=== PATIENT | female | born 1965 | race Caucasian/White ===

== ENCOUNTER 2025-05-19 10:19 | Outpatient (AMB) | payer OTHER, SELFPAY ==
[2025-05-19 10:24] VITALS: BMI 32.1
--- NOTE | 2025-05-19 10:24 | HO.SPINEOV ---
Vital Signs 05/19/25 10:24 Height 5 ft 1 in Weight 170 lb BMI 32.1 Intake Visit Reasons: chronic left sided low back pain Intake Note: Mrs. Betancourt is here today c/o Left buttock pain. Foam Machine Operator Required: No Allergies acetaminophen (From Vicodin) Allergy (Severe, Verified 05/19/25 10:25) Rash bupropion (From Wellbutrin) Allergy (Severe, Verified 05/19/25 10:25) Hallucinations hydrocodone (From Vicodin) Allergy (Severe, Verified 05/19/25 10:25) Rash Penicillins Allergy (Severe, Verified 05/19/25 10:25) Hives Physical Exam Vital Signs: BMI result Body Mass Index 32.1 Assessment & Plan Assessment & Plan (1) Acquired spondylolisthesis of lumbosacral region: Code(s): M43.17 - Spondylolisthesis, lumbosacral region Category: Medical Plan: Dear dear colleague Thank you for referring Marilyn Betancourt to the office today with a chief complaint of left leg pain. HPI: This 59-year-old female developed pain that radiates down her left buttock posterior thigh and calf/lateral side. Walking and standing increases the pain. Sitting down improves the pain. 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 The right side is less affected. She also has pain on the dorsum of the bilateral feet. Currently the right side is more affected than the left side. She was told that this is a foot problem for which she needs to undergo some form of fusion of her feet. The following conservative treatment options were tried without success antiinflammatories, tylenol, physician guided home exercise plan, cortisone shots PMH: Anxiety depression, bilateral knee surgery, 3 C sections Medications: Duloxetine, meloxicam, oxybutynin, Neurontin, Tylenol and vitamin D3 Allergies: Penicillin, Vicodin, Chantix, Wellbutrin Social history: . Nonsmoker Physical Exam: Pleasant female. Height 5'1 weight 180 lb. Straight leg raise produces pain in the left buttock. Motor exam and sensory exam are intact. Gait is undisturbed Radiological Studies: MRI done at [facility] on 08/23/2024 shows severe L4-5 spinal stenosis and L5-S1 spinal stenosis with compression of the L5 and S1 nerve roots. She also has a severe right L5 foraminal stenosis. 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 Dynamic lumbar x-rays today show a grade 1-2 L5-S1 spondylolisthesis without instability. Impression/Plan: This patient is suffering from a lumbar radiculopathy left side without significant back pain. Imaging show a spondylolisthesis that seems to be stable on flexion-extension x-rays. More importantly, the MRI shows severe spinal stenosis L4-5 and L5-S1 with compression of the L5 and S1 nerve roots. I offered her an L4-5 and L5-S1 laminotomy to decompress the L5 and S1 nerve root on the left side. I am curious to see if this will also resolve the pain on the top of her foot as this will may well represent pain coming from the L5 nerve root. For now, I think a fusion is not indicated. She will let my office know when she wants to schedule the surgery. Thank you for allowing me to participate in your patients care. total time spent was 50 minutes in counseling ,coordination of plan, personal review of imaging, surgical decision making and subsequent plan Alvaro Galarza MD, PhD Spine Fellowship Trained Neurosurgeon Director, [facility] Orders: Orders XR lumbar spine 4V min Today M43.17 - Spondylolisthesis, lumbosacral region Coding Level of Care Code New Pt Level 4 (33582) Diagnoses Acquired spondylolisthesis of lumbosacral region M43.17
--- OUTSIDE RECORDS SUMMARY | 2025-05-19 11:02 | XMS_ITS | Encounter Summary ---
Author Organization [facility] Address [address] [place] [address] Care Team Providers Care Purchasing Manager/Sales Name Role Phone Melva Rivero APRN Primary Care Provider U navailable Unknown Pcp, Non Rmg Primary Care Provider UnaAndrew Arauz MD Primary Care Provider Encounter Details Date Type Department Care Team (Late st Contact Info) Description 11/24/2013 Orders Only [facility] [address] [place] [address] Melva Rivero, HELP DESK SUPERVISOR Social History Tobacco Use Types Packs/Day Years Used Date Smoking Tobacco: Every Day Cigarettes 1 7 Smokeless Tobacco: Never Alcohol Use Standard Drinks/Week Comments Yes 2.5 (1 standard drin k = 0.6 oz pure alcohol) Enjoys an occasional glass of wine Comments No Sex and Gender Information Value Date Recorded Sex Assigned at Not on file Legal Sex Female 4:29 AM EDT Gender Identity Not on file Sexual Orientation Not on file 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 Vitamin D deficiency can decrease the body's ability to absorb calcium and so increase potential for osteoporosis. Vitamin D deficiency can cause muscle aches and pains. Goal is a blood level over 30 Start with calcium with D 600 mg (calcium) twice a day. recheck in 6 months: (Vit D 25 OH). Please order lab work. . Immunity to Hep B noted. . Melva Aranda NP documented in this encounter Plan of Treatment Not on file documented as of this encounter Procedures * Due to [place] [employer] law, this organization might not be sharing negative HIV tests. Procedure Name Priority Date/Time Associated Diagnosis Comments HEPATITIS C AB WITH REFLEX TO RNA PCR, SERUM Routine 11/24/2013 9:38 AM EST Decorative tattoo HEPATITIS B SURFACE ANTIBODY, QUALITATIVE Routine 11/24/2013 9:38 AM EST Immunity status testing HEPATITIS B CORE ANTIBODY, TOTAL, SERUM Routine 11/24/2013 9:38 AM EST Decorative tattoo CBC INCLUDES DIFFERENTIAL AND PLATELET COUNT Routine 11/24/2013 9:38 AM EST Screening for condition ALANINE AMINOTRANSFERASE (ALT), SERUM Routine 11/24/2013 9:38 AM EST Screening for condition ASPARTATE AMINOTRANSFERASE (AST), SERUM Routine 11/24/2013 9:38 AM EST Screening for condition HEMOGLOBIN A1C Routine 11/24/2013 9:38 AM EST Screening for diabetes mellitus VITAMIN D, 25-HYDROXY, TOTAL, IMMUNOASSAY Routine 11/24/2013 9:38 AM EST Screening for condition BASIC METABOLIC PANEL WITH (GFR) Routine 11/24/2013 9:38 AM EST Screening for condition documented in this encounter Results * Due to [place] [employer] law, this organization might not be sharing negative HIV tests. * (ABNORMAL) HEPATITIS B SURFACE ANTIBODY, QUALITATIVE (11/24/2013 9:38 AM EST) Hepatitis B virus surface Ab REACTIVE(A ) NON-REACT AMOL [facility] Comment:{HEPATITIS B SURFACE ANTIBODY QL {[id number]) 11/24/2013 9:38 AM EST 11/24/2013 7:53 PM EST Narrative Resulting Agency Comment [id number] Melva Rivero [facility] Final Re sult Performing Organization Address [facility] de Phone Number [facility] [address] [place] [address] * HEMOGLOBIN A1C (11/24/2013 9:38 AM EST) Pathologist [facility] Hemoglobin A1C 5.6 <5.7 % of total Hgb [facility] Comment: {HEMOGLOBIN A1c {[id number]) According to ADA guidelines, hemoglobin A1c <7.0% represents optimal control in non- diabetic patients. Different metrics may apply to specific patient populations. Standards of Medical Care in Diabetes-2013. Diabetes Care. 2013;36:s11-s66 For the purpose of screening for the presence of diabetes <5.7% Consistent with the absence of diabetes 5.7-6.4% Consistent with increased risk for diabetes (prediabetes) >or=6.5% Consistent with diabetes This assay result is consistent with a decreased risk of diabetes. Currently, no consensus exists for use of hemoglobin A1c for diagnosis of diabetes for children. Estimated Average Glucose 122 mg/dL (calc) [facility] Comment:{MEAN PLASMA GLUCOSE {[id number]) 11/24/2013 9:38 AM EST 11/24/2013 7:53 PM EST Narrative Resulting Agency Comment [id number] Melva Rivero HELP DESK SUPERVISOR LABORATORY Final Re sult Performing Organization Address City/[facility] Co de Phone Number [facility] [address] [place] [phone] * CBC INCLUDES DIFFERENTIAL AND PLATELET COUNT (11/24/2013 9:38 AM EST) WBC 10.0 3.8 - 10.8 Thousand/u L [facility] Comment:{WHITE BLOOD CELL CO UNT {[id number]) RBC 4.90 3.80 - 5.10 Million/uL [facility] Comment:{RED BLOOD CELL COUN T {[id number]) Hemoglobin 13.8 11.7 - 15.5 g/dL [facility] Comment:{HEMOGLOBIN {[id number]) Hematocrit 41.4 35.0 - 45.0 % [facility] Comment:{HEMATOCRIT {[id number]) MCV 84.5 80.0 - 100.0 fL [facility] Comment:{MCV {[id number]) MCH 28.1 27.0 - 33.0 pg [facility] Comment:{MCH {[id number]) MCHC 33.2 32.0 - 36.0 g/dL [facility] Comment:{MCHC {[id number]) RDW 14.7 11.0 - 15.0 % [facility] Comment:{RDW {[id number]) PLT 291 140 - 400 Thousand/u L [facility] Comment:{PLATELET COUNT {[id number]) MPV 9.0 7.5 - 11.5 fL [facility] Comment:{MPV {[id number]) Neutrophils # 7260 1500 - 7800 cells/uL [facility] Comment:{ABSOLUTE NEUTROPHIL S {[id number]) Lymphocytes # 2110 850 - 3900 cells/uL [facility] Comment:{ABSOLUTE LYMPHOCYTE S {[id number]) Monocytes # 520 200 - 950 cells/uL [facility] Comment:{ABSOLUTE MONOCYTES {[id number]) Eosinophils # 70 15 - 500 cells/uL [facility] Comment:{ABSOLUTE EOSINOPHIL S {[id number]) Basophils # 40 0 - 200 cells/uL [facility] Comment:{ABSOLUTE BASOPHILS {[id number]) Neutrophils % 72.6 % [facility] Comment:{NEUTROPHILS {[id number]) Lymphocytes % 21.1 % [facility] Comment:{LYMPHOCYTES {[id number]) Monocytes % 5.2 % [facility] Comment:{MONOCYTES {[id number]) Eosinophils % 0.7 % [facility] Comment:{EOSINOPHILS {[id number]) Basophils % 0.4 % [facility] Comment:{BASOPHILS {[id number]) 11/24/2013 9:38 AM EST 11/24/2013 7:53 PM EST Narrative Resulting Agency Comment [id number] Melva Rivero [facility] SAME DAY RESULT Brenda l Result Performing Organization Address [facility] Co de Phone Number [facility] [address] [place] [address] * ALANINE AMINOTRANSFERASE (ALT), SERUM (11/24/2013 9:38 AM EST) ALT (SGPT) 15 6 - 29 U/L [facility] Comment:{ALT {[id number]) 11/24/2013 9:38 AM EST 11/24/2013 7:53 PM EST Narrative Resulting Agency Comment [id number] Melva Rivero [facility] SAME DAY RESULT Brenda l Result Performing Organization Address [facility] de Phone Number [facility] [address] [place] [address] * ASPARTATE AMINOTRANSFERASE (AST), SERUM (11/24/2013 9:38 AM EST) AST (SGOT) 12 10 - 35 U/L [facility] Comment:{AST {[id number]) 11/24/2013 9:38 AM EST 11/24/2013 7:53 PM EST Narrative Resulting Agency Comment [id number] Melva Rivero [facility] SAME DAY RESULT Brenda l Result Performing Organization Address [facility] de Phone Number [facility] [address] [place] [address] * BASIC METABOLIC PANEL WITH (GFR) (11/24/2013 9:38 AM EST) Glucose 84 65 - 99 mg/dL [facility] Comment: {GLUCOSE {[id number]) Fasting reference interval Urea Nitrogen Blood (BUN) 9 7 - 25 mg/dL [facility] Comment:{UREA NITROGEN (BUN) {[id number]) Creatinine 0.69 0.50 - 1.10 mg/dL [facility] Comment:{CREATININE {[id number]) GFR 104 > OR = 60 mL/min/1. 73m2 [facility] Comment:{eGFR NON-AFR. AMERI CAN {[id number]) GFR () 121 > OR = 60 mL/min/1. 73m2 [facility] Comment:{eGFR AMERIC AN {[id number]) BUN/Creatinine Ratio NOT APPLICABLE (calc) [facility] Comment:{BUN/CREATININE RATI O {[id number]) Sodium 139 135 - 146 mmol/L [facility] Comment:{SODIUM {[id number]) Potassium 4.7 3.5 - 5.3 mmol/L [facility] Comment:{POTASSIUM {[id number]) Chloride 105 98 - 110 mmol/L [facility] Comment:{CHLORIDE {[id number]) Carbon dioxide 23 19 - 30 mmol/L [facility] Comment:{CARBON DIOXIDE {[id number]) Calcium 9.3 8.6 - 10.2 mg/dL [facility] Comment:{CALCIUM {[id number]) 11/24/2013 9:38 AM EST 11/24/2013 7:53 PM EST Narrative [facility] - 11/25/2013 12:03 AM EST Please note that this estimated GFR does not include an adjustment for the patient's height or weight, and can therefore, be viewed as reliable only for patients with heights between 60 and 72 . More precise quantification using a 24-hour urine sample or height-based algorithm is recommended for patients outside of this range of height and for those individuals with more precise needs for GFR calculation. Resulting Agency Comment [id number] Melva Rivero APRN LABORATORY Final Re sult [facility] [address] [place] [address] * HEPATITIS B CORE ANTIBODY, TOTAL, SERUM (11/24/2013 9:38 AM EST) Hepatitis B virus core Ab NON-REACTI VE NON-REACT AMOL [facility] Comment:{HEPATITIS B CORE AB TOTAL {[id number]) 11/24/2013 9:38 AM EST 11/24/2013 7:53 PM EST Narrative Resulting Agency Comment [id number] Melva Rivero [facility] Final Re sult Performing Organization Address [facility] Co de Phone Number [facility] [address] [place] [address] * HEPATITIS C ANTIBODY, SERUM (11/24/2013 9:38 AM EST) Hepatitis C virus Ab NON-REACTI VE NON-REACT AMOL [facility] Comment:{HEPATITIS C ANTIBOD Y {[id number]) Hepatitis C virus Ab Signal/Cutoff 0.04 <1.00 [facility] Comment:{SIGNAL TO CUT-OFF { [id number]) 11/24/2013 9:38 AM EST 11/24/2013 7:53 PM EST Narrative Resulting Agency Comment [id number] Melva Rivero [facility] Final Re sult Performing Organization Address [facility] de Phone Number [facility] [address] [place] [address] * (ABNORMAL) VITAMIN D, 25-HYDROXY, LC/MS/MS (11/24/2013 9:38 AM EST) Vitamin D, 25-OH, Total 29(L) 30 - 100 ng/mL [facility] Comment:{VITAMIN D, 25 OH, T OTAL {[id number]) Vitamin D, D3 (Cholecalciferol ) 29 ng/mL [facility] Comment:{VITAMIN D, 25 OH, D 3 {[id number]) Vitamin D, 25-OH, D2 (Calciferol) <4 ng/mL [facility] Comment: {VITAMIN D, 25 OH, D2 {[id number]) 25-OHD3 indicates both endogenous production and supplementation. 25-OHD2 is an indicator of exogenous sources such as diet or supplementation. Therapy is based on measurement of Total 25-OHD, with levels <20 ng/mL indicative of Vitamin D deficiency, while levels between 20 ng/mL and 30 ng/mL suggest insufficiency. Optimal levels are > or = 30 ng/mL. 11/24/2013 9:38 AM EST 11/24/2013 7:53 PM EST Narrative Resulting Agency Comment [id number] Melva Rivero APRN LABORATORY Final Re sult Performing Organization Address City/State/[facility] Co de Phone Number [facility] [address] [place] [address] documented in this encounter Visit Diagnoses Diagnosis Screening for condition Screening for unspecified condition Decorative tattoo Other dyschromia Screening for diabetes mellitus Immunity status testing Antibody response examination documented in this encounter Care Teams Purchasing Manager/Sales Relationship Specialty Start Date End Date Melva Rivero APRN PCP - General Internal Medicine 03/30/13 12/03/14 Unknown Pcp, Non Rmg PCP - General 12/04/14 03/19/15 Andrew Coffey MD [facility] [address] [place] [id number] PCP - General Internal Medicine 03/20/15 documented as of this encounter
--- OUTSIDE RECORDS SUMMARY | 2025-05-19 11:02 | XMS_ITS | Encounter Summary ---
Author Organization [facility] Address [address] [place] [address] Care Team Providers Care Brokerage Coordinator Name Role Phone Reema Olivier MD Primary Care Provider Nadeem Michel MD Primary Care Provider Melva Pruitt APRN Primary Care Provider U navailable Unknown Pcp, Non [facility] Primary Care Provider Unava ilAndrew Cole MD Primary Care Provider Encounter Details Date Type Department Care Team (Late st Contact Info) Description 04/27/2009 Orders Only [facility] [address] [place] [phone] Savana Winslow NP [facility] [address] [place] [address] Social History Tobacco Use Types Packs/Day Years Used Date Smoking Tobacco: Every Day Cigarettes 0.5 3 Comments:Has quit in the pas t for 6 years. Has tried Chantix - made her dizzy. Alcohol Use Standard Drinks/Week Comments Yes 2.5 (1 standard drin k = 0.6 oz pure alcohol) Enjoys an occasional glass of wine Comments No Sex and Gender Information Value Date Recorded Sex Assigned at Not on file Legal Sex Female 4:29 AM EDT Gender Identity Not on file Sexual Orientation Not on file documented as of this encounter Progress Notes * Reema Olivier MD - 05/02/2009 12:51 PM EDTQuick Note: D/w pt at OV 05/02/09. * Savana Winslow - [facility] - 04/30/2009 7:41 AM EDTQuick Note: Cholesterol elevated, Not taking any meds. Pt has OV with PCP 05/02 for 3 month follow up documented in this encounter Plan of Treatment Not on file documented as of this encounter Procedures * Due to [facility] law, this organization might not be sharing negative HIV tests. Procedure Name Priority Date/Time Associated Diagnosis Comments LIPID PANEL + CARDIAC RISK WITH REFLEX TO LDL DIRECT Routine 04/27/2009 Hyperlipidemia documented in this encounter Results * Due to [place] [employer] law, this organization might not be sharing negative HIV tests. * (ABNORMAL) LIPID PANEL + CARDIAC RISK WITH REFLEX TO LDL DIRECT (04/27/2009) CHOLESTEROL, TOTAL 243(H) 125 - 200 MG/DL [facility] TRIGLYCERIDES 156(H) 30 - 149 MG/DL [facility] HDL-CHOLESTEROL 62 40 - 77 MG/DL [facility] LDL-CHOLESTEROL 150(H) 62 - 130 MG/DL [facility] Comment: RISK CATEGORY: LDL-CHOLESTEROL GOAL CHD AND CHD RISK EQUIVALENTS: <100 MULTIPLE (2+) FACTORS: <130 ZERO TO ONE RISK FACTOR: <160 CHD RELATIVE RISK RATIO (TOTAL/HDL) 3.92 0.0 - 5.0 [facility] Comment:(0.8 X AVERAGE) 04/27/2009 04/27/2009 4:4 8 PM EDT Savana Winslow CREMATORY ATTENDANT LABORATORY Final Result [facility] [address] [place] [address] documented in this encounter Visit Diagnoses Diagnosis Hyperlipidemia Other and unspecified hyperlipidemia documented in this encounter Care Teams Brokerage Coordinator Relationship Specialty Start Date End Date Reema Olivier MD PCP - General 06/23/08 03/20/12 Nadeem Michel MD PCP - General Internal Medicine 03/21/12 03/29/13 Melva Rivero APRN PCP - General Internal Medicine 03/30/13 12/03/14 Unknown Pcp, Non Rmg PCP - General 12/04/14 03/19/15 Andrew Coffey MD [facility] [address] [place] [id number] PCP - General Internal Medicine 03/20/15 documented as of this encounter
--- OUTSIDE RECORDS SUMMARY | 2025-05-19 11:02 | XMS_ITS | Encounter Summary ---
Author Organization [facility] Address [address] [place] [address] Care Team Providers Care Commercial Producer Name Role Phone Nadeem Michel MD Primary Care Provider Melva Pruitt APRN Primary Care Provider U navailable Unknown Pcp, Non g Primary Care Provider Unava ilAndrew Cole MD Primary Care Provider [phone] Reason for Visit * Reason Comments E-prescribing Refill Request Encounter Details Date Type Department Care Team (Late st Contact Info) Description 12/16/2012 Refill [facility] [address] [place] [phone] Nadeem Michel MD E-prescribing Refill Request Social History Tobacco Use Types Packs/Day Years [...] n file documented as of this encounter Plan of Treatment Not on file documented as of this encounter Visit Diagnoses Not on filedocumented in this encounter Care Teams Commercial Producer Relationship Specialty Start Date End Date Nadeem Michel MD PCP - General Internal Medicine 03/21/12 03/29/13 Melva Rivero APRN PCP - General Internal Medicine 03/30/13 12/03/14 Unknown Pcp, Non [facility] PCP - General 12/04/14 03/19/15 Andrew Coffey MD [facility] [address] [place] [address] PCP - General Internal Medicine 03/20/15 documented as of this encounter
--- OUTSIDE RECORDS SUMMARY | 2025-05-19 11:02 | XMS_ITS | Encounter Summary ---
Author Organization [facility] Address [address] [place] [address] Care Team Providers Care Machine Clerical Verifier Name Role Phone Reema Olivier MD Primary Care Provider [phone] Nadeem Michel MD Primary Care Provider Melva Pruitt APRN Primary Care Provider U navailable Unknown Pcp, [place] [facility] [place] Unava ilAndrew Cole MD Primary Care Provider Encounter Details Date Type Department Care Team (Late st Contact Info) Description 12/25/2008 Orders Only [facility] [address] [place] [address] [phone] Reema Olivier MD [address] [place] [id number] Social History Tobacco Use Types Packs/Day Years [...] on file documented as of this encounter Plan of Treatment Not on file documented as of this encounter Procedures * Due to [place] state law, this organization might not be sharing negative HIV tests. Procedure Name Priority Date/Time Associated Diagnosis Comments CARDIAC RISK/LIPID PROFILE I Routine 12/25/2008 Hyperlipidemia PTT (PARTIAL THROMBOPLASTIN TIME) Routine 12/25/2008 Preop Examination CBC 5 PART DIFF Routine 12/25/2008 Preop Examination ALANINE AMINOTRANSFERASE (ALT), SERUM Routine 12/25/2008 Hyperlipidemia ASPARTATE AMINOTRANSFERASE (AST), SERUM Routine 12/25/2008 Hyperlipidemia documented in this encounter Results * Due to [facility] law, this organization might not be sharing negative HIV tests. * (ABNORMAL) PTT (PARTIAL THROMBOPLASTIN TIME) (12/25/2008) PTT (PARTIAL THROMBOPLASTIN TIME) 35(H) 22 - 34 SECONDS Comment: THERAPEUTIC RANGE FOR HEPARIN THERAPY: 43-71 SEC. THE THERAPEUTIC RANGE FOR UNFRACTIONATED HEPARIN THERAPY IS 1.5-2.5 TIMES THE MEAN OF THE REFERENCE INTERVAL. IN PATIENTS IN WHOM THERE IS AN APPARENT HEPARIN RESISTANCE, A HEPARIN LEVEL BY AN ANTI-XA METHOD (RR6707) IS AVAILABLE. 12/25/2008 12/25/2008 12: 17 PM EDT Reema Olivier MD LAB SAME DAY RESULT Final Result * (ABNORMAL) CBC 5 PART DIFF (12/25/2008) WHITE BLOOD COUNT 11.3(H) 3.8 - 10.8 THOUS/UL RBC 4.75 3.80 - 5.10 MIL/UL Hemoglobin 13.1 11.7 - 15.5 G/DL HCT (HEMATOCRIT) 39.7 35.0 - 45.0 % MCV 83.6 80.0 - 100.0 FL MCH 27.5 27.0 - 33.0 PG MCHC 32.9 32.0 - 36.0 G/DL BAND % 0 0 - 5 % NEUTROPHIL % 78(H) 48 - 75 % LYMPHOCYTE % 16(L) 17 - 40 % MONOCYTE % 5 0 - 14 % EOSINOPHIL % 1 0 - 5 % BASOPHIL % 0 0 - 3 % ATYPICAL LYMPHOCYTE % 0 0 - 5 % PLATELETS 283 140 - 400 THOUS/UL BANDS # 0 0 - 750 CELLS/MCL NEUTROPHILS # 8814(H) 1500 - 7800 CELLS/MCL LYMPHOCYTES # 1808 850 - 3900 CELLS/MCL MONOCYTES # 565 200 - 950 CELLS/MCL EOSINOPHILS # 113 15 - 550 CELLS/MCL BASOPHILS # 0 0 - 200 CELLS/MCL ATYPICAL LYMPHOCYTES # 0 0 - 200 CELLS/MCL RDW 14.9 11.0 - 15.0 % MPV 8.5 7.5 - 11.5 FL 12/25/2008 12/25/2008 12: 17 PM EDT us Reema Olivier MD LAB SAME DAY RESULT Final Result * ALANINE AMINOTRANSFERASE (ALT), SERUM (12/25/2008) ALT (SGPT) 14 6 - 40 U/L 12/25/2008 12/25/2008 12: 17 PM EDT us Reema Olivier MD LAB SAME DAY RESULT Final Result * ASPARTATE AMINOTRANSFERASE (AST), SERUM (12/25/2008) AST (SGOT) 12 10 - 30 U/L 12/25/2008 12/25/2008 12: 17 PM EDT us Reema Olivier MD LAB SAME DAY RESULT Final Result * (ABNORMAL) CARDIAC RISK/LIPID PROFILE I (12/25/2008) CHOLESTEROL, TOTAL 217(H) 125 - 200 MG/DL TRIGLYCERIDES 175(H) 30 - 149 MG/DL HDL-CHOLESTEROL 50 40 - 77 MG/DL LDL-CHOLESTEROL 132(H) 62 - 130 MG/DL Comment: RISK CATEGORY: LDL-CHOLESTEROL GOAL CHD AND CHD RISK EQUIVALENTS: <100 MULTIPLE (2+) FACTORS: <130 ZERO TO ONE RISK FACTOR: <160 CHD RELATIVE RISK RATIO (TOTAL/HDL) 4.34 0.0 - 5.0 Comment:(1.0 X AVERAGE) 12/25/2008 12/25/2008 12: 17 PM EDT Reema Olivier MD LABORATORY Final Result documented in this encounter Visit Diagnoses Diagnosis Hyperlipidemia Other and unspecified hyperlipidemia Preop examination Preoperative examination, unspecified documented in this encounter Care Teams Machine Clerical Verifier Relationship Specialty Start Date End Date Reema Olivier MD PCP - General 06/23/08 03/20/12 Nadeem Michel MD PCP - General Internal Medicine 03/21/12 03/29/13 Melva Rivero, STAFF PHYSICAL THERAPIST BC PCP - General Internal Medicine 03/30/13 12/03/14 Unknown Pcp, Non [facility] PCP - General 12/04/14 03/19/15 Andrew Coffey MD [facility] [address] [place] [phone] PCP - General Internal Medicine 03/20/15 documented as of this encounter
--- OUTSIDE RECORDS SUMMARY | 2025-05-19 11:02 | XMS_ITS | Clinical Summary ---
Author Organization [facility] Address [address] [place] [address] Care Team Providers Care Systems Integration Advisor Name Role Phone Dillon Roberto MD Primary Care Provider [phone] Allergies Active Allergy Reactions Criticality Noted Date Comments Bupropion Mood Disturbance,Hallucin ations 06/29/2023 Hydrocodone-Acetaminoph en Dermatitis,Rash 06/29/2023 Penicillins Dermatitis,Rash 06/29/2023 Varenicline Unknown,Hallucinatio ns 03/17/2018 out of body experience, angry Bupropion Hcl Rash 03/17/2018 Medications * This document contains information received from the source organization and may not represent a complete record from that organization. acetaminophen (TYLENOL) 325 mg tablet Take 2 tablets (650 mg total) by mouth every 6 hours. 1 Active cyclobenzaprine (FLEXERIL) 10 mg tabletIndications :Spinal stenosis of lumbar region without neurogenic claudication Take 1 tablet (10 mg total) by mouth every night. 30 tablet 4 Active LORazepam (ATIVAN) 0.5 mg tabletIndications :Major depressive disorder with current active episode, unspecified depression episode severity, unspecified whether recurrent Take 1 tablet (0.5 mg total) by mouth 2 times a day as needed for anxiety. 60 tablet 4 Active cholecalciferol (VITAMIN D3) 2,000 unit capsuleIndication s:Vitamin D deficiency Take 1 capsule (2,000 Units total) by mouth once a day. 90 capsule 1 5 Active diazePAM (VALIUM) 5 mg tablet Take 1 tablet (5 mg total) by mouth once for 1 dose. Take 1 tab an hour before procedure, can repeat once [address] (CYMBALTA) 30 mg capsule Take 1 capsule (30 mg total) by mouth once a day. In addition to the 60 mg tab 90 capsule 1 5 07/29/[address] (CYMBALTA) 60 mg capsule Take 1 capsule (60 mg total) by mouth daily. In addition to the 30 mg tab 90 capsule 1 5 07/29/20 25 Active oxybutynin XL (DITROPAN XL) 10 mg tabletIndications :OAB (overactive bladder) TAKE 1 TABLET (10 MG TOTAL) BY MOUTH ONCE DAILY 30 tablet 3 5 Active meloxicam (MOBIC) 15 mg tablet Take 1 tablet (15 mg total) by mouth once a day. 90 tablet 1 5 Active gabapentin (NEURONTIN) 300 mg capsuleIndication s:Lumbar radiculopathy Take 1 capsule in the morning and 2 capsules po at bedtime 90 capsule 5 5 Active hydrOXYzine (ATARAX) 50 mg tabletIndications :Anxiety Take 1 tablet (50 mg total) by mouth 2 times a day as needed for anxiety. 60 tablet 2 5 07/26/20 25 Active busPIRone (BUSPAR) 5 mg tabletIndications :Depression with anxiety Take 1 tablet (5 mg total) by mouth 2 (two) times a day. 180 tablet 5 04/27/20 25 Discontin ued([facility] Response/ Adverse Reaction) Active Problems Problem Noted Date Diagnosed Date Hyperlipidemia 12/11/2023 OAB (overactive bladder) 12/11/2023 Former smoker 12/11/2023 S/P carpal tunnel release 12/11/2023 Spinal stenosis of lumbar re gion without neurogenic claudication 01/14/2022 Assessment & Plan (01/04/2025 12:12 PM EDT): Pt reports a history of spinal stenosis with chronic pain radiating from the buttocks down the right leg. Describes significant discomfort when putting pressure on the right foot/leg, often requiring her to lie flat after returning home from work for symptom relief. Symptoms have been ongoing for the past several years. Pt reports gabapentin previously provided some relief. She underwent a guided injection in June 2024, but experienced shooting pain during the procedure and states that the injection did not relieve her pain. She has not followed up since that injection and is not interested in pursuing further injections. Also reports severe arthritis as a compounding factor. Spinal stenosis with right-sided radiculopathy - chronic, persistent Severe arthritis - likely contributing to functional limitation Injection therapy not tolerated or effective Gabapentin reinitiated for neuropathic pain relief Referral to physical medicine and rehabilitation (physiatry) placed for further conservative management and evaluation Orders: Ambulatory referral to Physical Medicine Rehab; Future gabapentin (NEURONTIN) 300 mg capsule; Take 1 capsule (300 mg total) by mouth nightly. Rheumatoid arthritis with negative rheumatoid fa ctor 02/25/2017 Assessment & Plan (05/08/2019 7:39 PM EDT): Previous symptoms of a seronegative disorder seem not to be active presently. Symptoms in the knees and the foot appear to be predominantly osteoarthritic at this time. Assessment & Plan (12/29/2018 7:19 PM EDT): Symptoms seen previously in a more generalized fashion have resolved. She is using some intermittent prednisone for her foot but not having generalized symptoms that she had previously. Problems in the knees were related to meniscal damage and accompanying osteoarthritis and not part of an inflammatory process. Assessment & Plan (09/30/2018 12:48 AM EST): Original symptoms suggesting a seronegative inflammatory process seem not to have born out well over time. Trials of prednisone seem to help symptoms partly although biologic agents were not very helpful in improving symptoms. She is withdrawn from prednisone and is no longer on Enbrel or Humira and there is not been an accumulation or deterioration of symptoms in other areas. Problems in the knees and the feet I believe her osteoarthritic changes. Certainly there are situations where there can be some transient inflammatory symptoms, but what ever had been present at original presentation seems not to have fostered a progressive process and I would be more conservative with medication suggestions at this time. Lower extremity symptoms may be partially related to changing gait for dealing with the symptoms in the knees and I hope that once the left knee surgical repair is undertaken that the knee pain will improve. Assessment & Plan (06/27/2018 12:19 PM EDT): Not clinically active by physical exam. Assessment & Plan (05/12/2018 6:44 PM EDT): Generalized symptoms seem well controlled without any evidence for active warmth swelling or redness. Monitoring labs will be drawn. Meloxicam and Enbrel will continue. Assessment & Plan (03/18/2018 11:48 PM EDT): She continues with a moderate amount of discomfort in the knees and feet, less so on the hips and upper extremities, which is not responded well to anti- inflammatories. Larger doses of prednisone have been helpful. She is failed other oral options and I suggested to go ahead and look at a biologic agent with Enbrel or Actemra as options as insurance might allow. Continues with a substantial amount of symptoms. Assessment & Plan (12/30/2017 6:40 PM EDT): In active symptoms presently. No need to resume previous medication. Assessment & Plan (09/30/2017 7:45 PM EST): Initial presentation of symmetric symptoms in the shoulders and hips especially with some additional symptoms in the hands and feet. I am not certain whether the symptoms in the feet represent problems of neuropathy or inflammatory changes. She has been on Humira now almost 5 months and she felt that there had been some improvement with the Humira that would tail off by the time the next dose was due but she feels that she is not as comfortable as she expected. She has some days of improvement after the injection although the significant relief is not present as she had hoped and she continues with some soreness in the hips. Her shoulder pain is better. She has some slight discomfort in the hands and she has some symptoms in the feet which are difficult to discern. Laboratory studies have not been helpful in confirming a diagnosis of rheumatoid arthritis and I have been driven by the symptoms of symmetry, morning stiffness, and initial response to the sewn, which is been replaced the failed trial of methotrexate and now Humira. I suggested increasing gabapentin to 300 mg twice daily or 600 mg twice daily looking to see what response is generated for managing her foot pain. I suggested deferring her next dose of Humira looking to see whether there is a fade in leaf of symptoms as she goes beyond the 14 day injection cycle. Meloxicam can continue for now. I do not think imaging studies will be helpful. In previous laboratory studies did not demonstrate affirmative findings for rheumatoid arthritis or related disorders. This is still regarded as a seronegative arthritis disorder, uncharacterized. Assessment & Plan (08/15/2017 5:05 PM EST): The initial symptoms have improved initially with a trial of prednisone and have been sustained with Humira. I do not see anything to suggest Humira related adverse effects at this time, and Humira will continue presently. I suggested a trial of meloxicam as an alternative to Aleve which she is using in doses slightly higher than I would prefer and suggested 15 mg meloxicam daily as an alternative. Humira continues every 2 weeks. No evidence for any injection site reactions or adverse effects from Humira. 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 Major depression 11/29/2009 Assessment & Plan (10/19/2023 8:40 AM EST): Declines referral to psychiatry, therapy did not help. Continues with duloxetine and ativan. Resolved Problems Problem Noted Date Diagnosed Date Resolved Date Vitamin D insufficiency 12/11/202305/22 Primary osteoarthritis of both feet 08/29/2021 10/19/2023 Assessment & Plan (12/23/2021 12:42 PM EDT): -Continue meloxicam 15mg daily. We discussed trying a different NSAID such as celebrex in case it is more helpful. She has been on Celebrex in the past too with some relief (during her knee surgery). Pt will consider -Also on Cymbalta 90mg daily -Weight loss would be beneficial. -Dr. Barksdale from Orthopedics had suggested an injection in the past, which she may consider. -Discussed trying acupuncture for pain management -Topicals have not been helpful except for Biofreeze Assessment & Plan (08/29/2021 12:19 PM EST): -Plans to continue on meloxicam 15mg daily with food. Denies any stomach upset. Will check labs today -Recommended to try wax/paraffin treatments for symptomatic relief. Instructions provided. -Pt will continue follow up with Orthopedics. Preoperative examination 12/18/2020 Trigger finger 09/10/2020 10/19/2023 Assessment & Plan (09/22/2020 2:09 PM EST): Local changes in both thumbs. I explained that local injection and surgical release are the interventions that I think are most useful. I have no expectation that splinting would be helpful. This is separate from osteoarthritic change at the trapeziometacarpal joints. Left hip pain 09/10/2020 10/19/2023 Assessment & Plan (09/22/2020 2:11 PM EST): Local trochanteric tenderness. Options of local injection of steroid and physical therapy in the home exercise program discussed with her. Home exercise program will be initiated first. Exercises given to her. Primary osteoarthritis of both knees 04/19/2020 10/19/2023 Arthritis of midfoot 06/03/2019 024 Assessment & Plan (10/06/2019 4:22 PM EST): I suggested addressing the knee problems before considering any approaches for the midfoot. Primary osteoarthritis of left knee 07/15/2018 10/19/2023 Assessment & Plan (10/06/2019 4:22 PM EST): Discussed above. Assessment & Plan (12/29/2018 7:20 PM EDT): Recent meniscal repair with findings of osteoarthritis in the knee, which could be a candidate for partial joint replacement when symptoms progress. She is quite pleased with the outcome of surgery and continues with her rehab program and she has a follow-up visit with the surgeon pending. Assessment & Plan (07/18/2018 11:46 AM EDT): Evidence for osteoarthritic damage in the left knee especially in the medial compartment with some fissuring of the cartilage seen on MRI as well as a complex tear of the posterior horn of the medial meniscus. I suspect that these are osteoarthritic changes as a consequence of meniscal tears as the sequence of events. It will unfortunately require a surgical consultation. Primary osteoarthritis of luis miguel th first carpometacarpal joints 05/12/2018 10/19/2023 Assessment & Plan (09/29/2022 12:40 PM EST): -Thumb braces provided. -Patient will apply topical lidocaine as she has found it helpful. Patches are not comfortable and come off. -Referred to OT. -Will consider paraffin treatments (but not concurrently with lidocaine as she understands it's a numbing topical med) -Continues on meloxicam 15mg daily. Also on Tylenol and Cymbalta. Assessment & Plan (12/29/2018 7:21 PM EDT): Osteoarthritic squaring most obvious at the base of the left thumb more than the right with local tenderness. Local measures are warranted. I do not think oral intervention has much to offer. Splints injections and topical approaches are appropriate. Assessment & Plan (05/12/2018 6:46 PM EDT): Osteoarthritic changes presence of the base of the thumb. Splinting and Voltaren cream might be options to consider. I explained that it would not necessarily be something right expect Enbrel have an impact. Primary osteoarthritis of right knee 02/25/2018 10/19/2023 Overview (02/25/2018): MRI February 24, 2018 Assessment & Plan (09/22/2020 2:10 PM EST): Persisting symptoms that she has chosen to tolerate for the current time. We discussed the inevitability of joint replacement which is based on how much symptoms interfere with her routine. Topical approaches have only been slightly helpful and Celebrex has not done as much for her as she would like. She had failed local injection previously and I would not reconsider that currently. Assessment & Plan (10/06/2019 4:20 PM EST): Osteoarthritis of both knees, which could be a consequence of medial meniscal damage as the primary event, or possibly osteonecrosis as suggested by the orthopedist with subsequent subchondral collapse and damage to the meniscal cartilage. She does not have a risk factor for osteonecrosis however. I would favor the meniscal damage is the primary event. Unfortunately she is exhausted approaches with local injection options, topical therapy and oral therapy and has had a significant effect and limiting her activities of daily living. I think that joint replacement becomes a necessary choice to consider presently even though she is on the younger side of individuals requiring surgery. Handicap placard will be renewed and pain medication prescription renewed until surgery. Assessment & Plan (05/08/2019 7:42 PM EDT): Bilateral medial compartment osteoarthritic changes in the setting of progressive deterioration of the medial meniscus. She is failed conservative approaches with arthroscopy, oral anti-inflammatories and topical anti-inflammatories and local injection of steroid. I did encourage her to consider hyaluronate as had been suggested by Dr. Bustos, and if she is interested in additional surgical opinions I could certainly give her some names. She is reluctant to consider partial knee replacement presently but I explained that it may give her a good amount of relief without foreclosing on future options if needed for additional surgery. Limited prescription for oxycodone provided to her as it allows her to continue to work. She is using it in a very sparing fashion. Appropriate use of the medication was reviewed with her. Assessment & Plan (12/29/2018 7:20 PM EDT): Stable symptoms after her arthroscopic repair of the meniscus. Assessment & Plan (02/25/2018 5:54 PM EDT): Discussion regarding surgical referral. Acute pain of right knee 02/22/2018 Assessment & Plan (03/18/2018 11:30 PM EDT): I believe she has a combination of problems in the knee with a meniscal tear, as well as some significant areas of osteoarthritic change in the knee that had evolved without any awareness on her part. I would like to think that the acute symptoms are related to the meniscal injury, and presently would think that this is a surgical problem. His advanced osteoarthritic changes in the knee which have evolved without any particular symptoms and an ultimate remedy will be joint replacement although one would like to think that a lesser intervention arthroscopically to deal with the meniscal damage could be helpful. She will see an orthopedist later today for another opinion. Oxycodone was increased to 10 mg tablets. I do not know that I have anything else to offer. She is using a variety of topical options with lidocaine and diclofenac and heat and ice. I do not think there is any place to consider repeat injection of steroid or to introduce oral steroid. Assessment & Plan (02/25/2018 5:53 PM EDT): Right knee pain with advanced osteoarthritic changes in the right knee not expected by previous imaging studies with additional mechanical problems of a Hawley's cyst and medial meniscal posterior horn cartilage tear. MRI report was reviewed with her in detail. She had incomplete improvement, has moderate discomfort with motion in the knee although does not describe locking or snapping. I suggested local injection of steroid in the knee today, with consideration for hyaluronate injection as an alternative as well. At 52 years old with discussed the prospect of joint replacement although she has very significant changes in the knee which occurred to a significant degree in an unexpected fashion. Orthopedic evaluation would be appropriate as well at this time. Aspiration yielded no obvious fluid in the knee and injection undertaken without complications with lidocaine, bupivacaine and 40 mg of Depo-Medrol Assessment & Plan (02/22/2018 10:08 PM EDT): Acute onset symptoms in the right knee without warmth swelling or redness. No evidence to suggest any inflammation, no effusion present in the knee no warmth or redness. I am concerned about a loose body in the knee although there is no distinct trauma and think that an MRI might be worthwhile at this time. X-rays of the knee a month ago on an AP view were unremarkable. Analgesic prescription offered, with oxycodone. Chronic pain of left knee 12/30/2017 Assessment & Plan (09/30/2018 12:46 AM EST): Left knee pain with some osteoarthritic changes and likely meniscal damage causing continued symptoms. She is failed oral medications and local injection and has plans for surgical repair in a month. She has a prescription for an analgesic with oxycodone to use when symptoms are severe, generally once a day. I do not think that there are other conservative measures available presently. She does have much more advanced osteoarthritic change in the knees than I would have expected for middle-aged without significant history of trauma or previous meniscal or ligamentous injuries. There does not seem to be an inflammatory component to symptoms. Assessment & Plan (07/18/2018 11:45 AM EDT): Symptoms in the left knee poorly responding to topical and oral therapy. We discussed seeing an orthopedic surgeon about the knee and also discussed an attempt at local injection for local relief. She has evidence for meniscal damage and osteoarthritic changes in the knee. Assessment & Plan (06/27/2018 12:19 PM EDT): Left knee pain without findings on exam to explain symptoms. Imaging studies do not show any significant findings on plain films. I am most concerned about an internal derangement in the knee and MRI ordered. Analgesics suggested temporarily. The gabapentin is been put aside for lack of benefit. No outward signs of inflammation where I would regard the Enbrel is having failed to manage symptoms. I think the knee problems are independent mechanical problems. Assessment & Plan (12/30/2017 6:40 PM EDT): Local symptoms suggestive of osteoarthritis of the knee. New imaging studies suggested. I suggested that she might try some [id number] remedies if symptoms appear to be more osteoarthritic, with trials of glucosamine or turmeric, although not validated, have some patients toward improvement and if she can have a response without relying on something by prescription that certainly could be considered. Capsaicin topical could be used as well. Foot pain, bilateral 08/10/2017 024 Assessment & Plan (05/08/2019 7:39 PM EDT): Osteoarthritic changes present in the right midfoot. Marketing Information Analyst referral discussed with her. Local availability of foot and ankle orthopedists is limited by her health insurance and I am not able to give her our recommendations of colleagues with whom I have shared patients otherwise. Assessment & Plan (12/29/2018 7:22 PM EDT): Seemingly osteoarthritis over the dorsum of the midfoot. New imaging studies ordered since the older ones [id number]. Nothing that suggests obvious crystal related disease presently or other inflammatory disorders. New imaging studies today and then additional imaging if needed, either with ultrasound or MRI. She is profoundly uncomfortable with concern for very significant difficulty being able to do any walking. Certainly stress fracture or other injury could be considered. Imaging studies pending. Assessment & Plan (09/30/2018 12:49 AM EST): Foot pain is suggestive for osteoarthritis over the dorsum of the midfoot areas. Very tender to local compression. There is no significant soft tissue swelling in the area presently. She is failed local measures. I suggested rechallenge with gabapentin for some symptomatic pain relief to be used at night 100 or 200 mg. No recent imaging has been done with films approximately a year ago or more. I am not suspicious for a crystal-induced disorder presently. New imaging studies could be undertaken if symptoms continue. Assessment & Plan (05/12/2018 6:45 PM EDT): Midfoot pain more likely to be due to osteoarthritis related changes in the area. Imaging studies done in December did not demonstrate significant bony abnormality. She does have some medial arch soft tissue swelling most likely local ganglion cyst emanating from the midfoot, which transilluminates and is fluctuant. I explained that it is not an area that easily amenable to resection and suggested a trial of Voltaren cream for symptomatic relief locally. I would not look to inject steroid in that area presently. Intervention choices are limited. Assessment & Plan (12/30/2017 6:41 PM EDT): Presence of midfoot pain with standing which is more suspicious for mechanical symptoms in the foot. She has not had any physical findings that would affirm an inflammatory process involving the entire foot. She has had partial improvement with meloxicam and gabapentin and I suggested an alternative anti-inflammatory with Voltaren 75 mg twice daily for symptomatic relief. New imaging studies of the feet requested looking for the type of abnormalities present. Certainly if these are osteoarthritic changes than mechanical approaches ought to be considered rather than accelerating medication profile. Her previous what seemed to be inflammatory symmetric symptoms have improved and she is not using methotrexate or Humira presently, having put them aside without any improvement in her foot pain, and with seemingly disappearance of her other proximal arthralgias symptoms. She had been steroid responsive which raise the premise of an inflammatory disorder but was always seronegative. She reports that she occasionally uses some prednisone 10 mg 2 or 3 days a week, which I am not sure that I would interrupt although I cannot explain why it is helpful. She does work on her feet, and needs to continue working which is the criteria I would use for continuing the dose on a very intermittent basis. Assessment & Plan (09/30/2017 7:43 PM EST): Symptomatic improvement with gabapentin and that dose will be increased to 600 mg daily and then possibly 1200 mg daily. She has symptoms that are not entirely typical for neuropathy related symptoms, and physical exam did not demonstrate significant inflammatory changes with redness warmth or swelling. Assessment & Plan (08/15/2017 5:04 PM EST): Location of symptoms in the feet are not what I do expect to easily attributed to an inflammatory process in the setting of absence of symptoms. The symptoms do not easily correlate with specific musculoskeletal structure, and I have some concern about nerve irritation symptoms. She does not demonstrate a positive Tinel's sign over the tarsal tunnel nor any significant tenderness to palpation over the posterior tibial structures. No inflammatory synovitis there and there is nothing to suggest significant pronation that might also cause problems in the tarsal tunnel area. I suggested a trial of gabapentin hoping it might be helpful with improving symptoms and to observe. I do not think it represents an adverse effect from Humira. Diffuse arthralgia 10/28/2016 8 Right shoulder pain 07/18/2014 10/19/19 24 Overview (10/06/2019): Overview: Tendonitis, tip acromion process. Prn ibuprofen, xray, ortho consult. Otitis externa 06/06/2014 10/19/2023 Overview (10/06/2019): Overview: Interventions discussed 50/50 vinegar and warm water. If Persists, abx drops. 07/18/2014 Dyslipidemia 04/29/2012 10/19/2023 Overview (10/06/2019): Overview: 06/02 Lipids acceptable S/e bruising with OTC Fish Oil 1 g tid Continue low cholesterol diet 10/26/2013 recheck labs. 06/06/2014 LDL 135. Follow. Unspecified mood (affective) disorder 04/29/2012 10/19/2023 Overview (10/19/2023): Overview: 12/01 PHQ 9: 7, stable, denies suicidal/homicidal ideation Continue Zoloft 100 mg daily and Xanax prn-uses sparingly Declines therapist Advised not to drive, drink alcohol or operate machinery while taking these medication/s as may cause drowsiness Advised if any suicidal or homicidal thoughts to call 911 or go to ER immediately, patient agrees and understands plan. 10/26/2013 stable on sertraline 100 mg without SE. Feels mood is good. Occ xanax use, cautioned about drowsiness with this. Not currently seeing a therapist. Currently dealing with brother going through alchohol detox rehab, father in law dying of cancer. Daughter having first baby 11/07. 06/06/2014 dealing with unemployment, deaths in family, new baby. Taking more alpraz which makes her groggy. Increase sertraline to 150 mgs. Decrease alprazolam use. Follow in 6 weeks. 06/06/2014 07/18/2014 improved on current dose 150 sertraline. Continue. 12/01 PHQ 9: 7, stable, denies suicidal/homicidal ideation Continue Zoloft 100 mg daily and Xanax prn-uses sparingly Declines therapist Advised not to drive, drink alcohol or operate machinery while taking these medication/s as may cause drowsiness Advised if any suicidal or homicidal thoughts to call 911 or go to ER immediately, patient agrees and understands plan. 10/26/2013 stable on sertraline 100 mg without SE. Feels mood is good. Occ xanax use, cautioned about drowsiness with this. Not currently seeing a therapist. Currently dealing with brother going through alchohol detox rehab, father in law dying of cancer. Daughter having first baby 11/07. 06/06/2014 dealing with unemployment, deaths in family, new baby. Taking more alpraz which makes her groggy. Increase sertraline to 150 mgs. Decrease alprazolam use. Follow in 6 weeks. 06/06/2014 07/18/2014 improved on current dose 150 sertraline. Continue. Tobacco use disorder 04/29/2012 024 Overview (10/06/2019): Overview: Advised cessation, informed of complications CAD, COPD, Cancers Patient aware and understands Did not tolerate chantix and wellbutrin Trial of Nicotine patch, s/e discussed 10/26/2013 brief counseling today, she has a lot on her plate right now and plans to quit when her daughters baby is born. Encouraged. 06/06/2014 has cut back but not quit, under 1/2 PPD. Reviewed interventions and cut down methods. Enc. Menorrhagia with regular cycle 04/09/2012 10/19/2023 Overview (10/19/2023): Overview: Formatting of this note may be different from the original. EMB done Path report.final diagnosis: Inactive/weakly proliferative pattern endometrium with focal tubal metaplasia and stromal breakdown. No hyperplasia or atypia is identified. (and pt started on progesterone only pill. Gets a monthly bleed of 5-7 days but not as heavy as when off medication. Doing well with POP. 06/16/14. EMB done Path report.final diagnosis: Inactive/weakly proliferative pattern endometrium with focal tubal metaplasia and stromal breakdown. No hyperplasia or atypia is identified. (and pt started on progesterone only pill. Gets a monthly bleed of 5-7 days but not as heavy as when off medication. Doing well with POP. 06/16/14. Impaired mobility 10/19/2023 Encounters * This document contains information received from the source organization and may not represent a complete record from that organization. Date Type Department Care Team Description 04/27/2025 8:30 AM EDT Office Visit [address] [phone] Carmen Maloney NP Annual physical exam (Primary Dx); Anxiety 03/30/[address] [id number] Julian Garrido MD Lumbar radiculopathy 03/07/[address] [phone] Luisa Fraser [place] 02/24/[address] [phone] Alpa Morejon [place] 02/20/2025 4:00 PM EDT Follow-Up [address] [address] Julian Garrido MD Chronic left-sided low back pain with left-sided sciatica (Primary Dx); Lumbar radiculopathy; Pars defect with spondylolisthesis from Last 3 Months Immunizations Immunization Administration Dates Next Due Covid-19, Pfizer, mRNA, Lea valent, PF 30 mcg/0.3 mL dose (for ages 12 and older) 09/19/2021,10/24/2020,10/03/2020 Diphtheria and Tetanus Toxoi ds, Adsorbed for Pediatric Use 09/21/1993 INFLUENZA, SPLIT VIRUS, TRIVALENT, PF 07/18/2016 Influenza, Injectable, Madin Fairbanks Canine Kidney, Quadrivalent 06/05/2023 Influenza, Injectable, Madin Fairbanks Canine Kidney, Preservative Free, Quadrivalent 07/27/2019 Influenza, Injectable, Quadr ivalent, Contains Preservative 06/24/2021 Influenza, Injectable, Quadr ivalent, Preservative Free, Pediatric 07/20/2019 Influenza, Trivalent, MDV, Injectable 10/26/2013 Measles Virus Vaccine 09/21/1993 PPD Test 01/19/2004 Pneumococcal Polysaccharide Vaccine, 23 Valent 09/21/2012,04/29/2012 Td(Adult) Unspecified Formulation 06/07/2003 Tetanus Toxoid, Reduced Diph theria Toxoid, and Acellular Pertussis Vaccine, Adsorbed 08/06/2016,10/26/2013 Tuberculin Skin Test; Purifi ed Protein Derivative Solution, Intradermal 01/19/2004 Family History Medical History Relation Name Comments Myocardial Infarction Brother Myocardial Infarction Father Arthritis Mother Dementia Mother Heart disease Mother Breast cancer Neg Hx Cervical cancer Neg Hx Colon cancer Neg Hx Osteoporosis Neg Hx Ovarian cancer Neg Hx Uterine cancer Neg Hx Relation Name Status Comments Brother Father Mother Alive Social History Tobacco Use Types Packs/Day Years Used Date Smoking Tobacco: Former Cigarettes 1 20 0 04/19/2000 - 04/19/2019 Vapor Passive Smoke Exposure: Never Smokeless Tobacco: Never Tobacco Cessation:Counseling Given: Not Answered Alcohol Use Standard Drinks/Week Comments Yes 2 (1 standard drink = 0.6 oz pur e alcohol) Maybe 2 or 3 a month [facility] Utilities Answer Date Recorded In the past 12 months has e [employer], gas, oil, or water [employer] threatened to shut off services in your home? No 01/11/2025 Hunger Vital Sign Answer Date Recorded Within the past 12 months, y ou worried that your food would run out before you got the money to buy more. Sometimes true Within the past 12 months, t he food you bought just didn't last and you didn't have money to get more. Never true Transportation Answer Date Recorded In the past 12 months, has l ack of reliable transportation kept you from medical appointments, meetings, work or from getting things needed for daily living? No 01/11/2025 Housing Answer Date Recorded Housing Risk Low 2 01/11/2025 Housing Risk Medium Not on file 01/11/2025 Housing Risk High Not on file 01/11/2025 What is your living situation today? [facility] 01/11/2025 Comments No Sex and Gender Information Value Date Recorded Sex Assigned at Female 09/07/2020 7:56 AM EST Legal Sex Female 7:31 AM EDT Gender Identity Female 09/07/2020 7:56 AM EST Sexual Orientation Straight 09/07/2020 7: 56 AM EST Last Filed Vital Signs Vital Sign Reading Time Taken Comments Blood Pressure 106/72 04/27/2025 8:31 AM EDT Pulse 82 04/27/2025 8:31 AM EDT Temperature 36.3 C (97.3 F) 04/27/2025 8:31 AM EDT Respiratory Rate 18 02/20/2025 4:02 PM EDT Oxygen Saturation 95% 04/27/2025 8:31 AM EDT Inhaled Oxygen Concentration - - Weight 82.6 kg (182 lb) 04/27/2025 8:31 AM EDT Height 154.9 cm (5' 1 ) 04/27/2025 8:31 AM EDT Body Mass Index 34.39 04/27/2025 8:31 AM EDT Plan of Treatment Upcoming Encounters Date Type Department Care Team (Late st Contact Info) Description 06/09/2025 8:00 AM EDT Office Visit [address] 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 Department [address] [place], [place] [phone] [place] [phone] Michelle Soto MD [address] [place] [address] 01/18/2026 5:20 PM EDT Appointment [facility] [address] [place] [address] Health Maintenance Due Date Last Done Comments Cologuard 1967 FOBT / Fit Test 1967 Sigmoidoscopy 1967 Hepatitis B Vaccines (1 of 3 - 19+ 3-dose series) 1986 HPV and Pap Smear 11/28/2012 11/29/2007, , 11/19/2005, Additional history exists Pneumococcal Vaccine: 50+ Years (2 of 2 - PCV) 2017 09/21/2012, 04/29/2012 Zoster Vaccines (1 of 2) 2017 COVID-19 Vaccine ( season) 2024 09/19/2021, 10/24/2020, 10/03/2020 Pap Smear 12/27/2024 12/27/2021, 11/19, 11/23/2006, Additional history exists Influenza Vaccine (#1) 2025 , 06/24/2021, 07/27/2019, Additional history exists Cervical Cancer Screening 06/20/2025 Po stponed from 11/28/2012 (Other Medical Reason) Social Drivers of Health Annual Screening 01/11/2026 01/11/2025 CT Lung Cancer Screening (Baseline) 04/27/2026 Postponed from 2017 (Patient Declined) Depression Screening and Follow-Up 04/27/2026 04/27/2025 HIV Screening 04/27/2026 Postponed from 1967 (Patient Declined) Hepatitis C Screening 04/27/2026 Postpo bernarda from 1967 (Patient Declined) DTaP,Tdap,and Td Vaccines (5 - Td or Tdap) 08/06/2026 08/06/2016, 10/26/2013, 06/07/2003, Additional history exists Mammogram 01/16/2027 01/16/2025, 12/21, 12/17/2022, Additional history exists Diabetes Screening 12/30/2027 12/29/2024, 0 12/29/2024, 11/20/2023, Additional history exists Colon Cancer Screening 02/21/2029 Colonoscopy 02/21/2029 02/21/2019, 02/18/2019 RSV Vaccine (60+ years old and patients) (1 - 1-dose 75+ series) 2042 Alcohol/Substance Use Screening Completed 04/27/2025 Oral Health Screening Discontinued 04/27/2025 Medical Devices Implanted Type Area Skin Grader Device Identifier Shelf Expiration Date Model / Serial / Lot Cement Radiopaque Full Dose 40gr Simplex P - [id number] Implanted:Qty: 2 on 04/19/2020 by Lucho Tang MD at [facility] Implant Left: Knee ANDREA 11/18/2021 6191-1-010 / / [id number] Insert Tibial Unconstrained Fixed Bearing Posterior Lipped Curved Size 2.5 12.5mm Sigma - [id number] Implanted:Qty: 1 on 04/19/2020 by Lucho Tang MD at [facility] Implant Left: Knee DEPUY 05/21/2024 1581-08-31 2 / / [id number] Femoral Bicondylar Cruciate Retaining Non Porous Left Cocr Size 2 Pfc Sigma - [id number] Implanted:Qty: 1 on 04/19/2020 by Lucho Tang MD at [facility] Implant Left: Knee DEPUY 06/20/2020 96-0002 / / [id number] Patella Three Peg Oval Dome 35mm Pfc Sigma - [id number] Implanted:Qty: 1 on 04/19/2020 by Lucho Tang MD at [facility] Implant Left: Knee DEPUY 07/21/2024 96-0101 / / [id number] Cement Radiopaque Full Dose 40gr Simplex P - [id number] Implanted:Qty: 2 on 01/03/2021 by Lucho Tang MD at [facility] Implant ANDREA 04/20/2022 6191-1-010 / / [id number] Femoral Bicondylar Cruciate Retaining Non Porous Right Cocr Size 2.5 Pfc Sigma - [id number] Implanted:Qty: 1 on 01/03/2021 by Lucho Tang MD at [facility] Implant Right: Knee DEPUY 12/19/2024 96-0018 / / [id number] Insert Tibial Unconstrained Fixed Bearing Posterior Lipped Curved Size 2.5 10mm Sigma - [id number] Implanted:Qty: 1 on 01/03/2021 by Lucho Tang MD at [facility] Implant Right: Knee DEPUY 06/20/2025 1581-08-31 0 / / [id number] Patella Three Peg Oval Dome 35mm Pfc Sigma - [id number] Implanted:Qty: 1 on 01/03/2021 by Lucho Tang MD at [facility] Implant Right: Knee DEPUY 06/20/2025 96-0101 / / [id number] Tray Tibial Cemented Modular Pfc Cocr Size 2.5 10shx42xr Sigma - [id number] Implanted:Qty: 1 on 04/19/2020 by Lucho Tang MD at [facility] Plate Left: Knee DEPUY 11/18/2029 0 / / [id number] Tray Tibial Cemented Modular Pfc Cocr Size 2.5 [id number] Sigma - [id number] Implanted:Qty: 1 on 01/03/2021 by Lucho Tang MD at [facility] Plate Right: Knee DEPUY 09/20/2030 0 / / [id number] Procedures * Due to [place] [employer] law, this organization might not be sharing negative HIV tests. Procedure Name Priority Date/Time Associated Diagnosis Comments SONAM BILATERAL SCREENING DIGITAL MAMMOGRAM WITH ADAM Routine 01/16/2025 5:07 PM EDT Encounter for screening mammogram for breast cancer HEMOGLOBIN A1C Routine 12/29/2024 8:48 AM EDT Healthcare maintenance HM COLONOSCOPY 02/21/2019 12:05 PM EDT PAP W/REFLEX HPV, CONVERSION Routine 11/29/2007 6:00 PM EDT from Last 3 Months or Most Recently Relevant to Health Maintenance Results * Due to [place] state law, this organization might not be sharing negative HIV tests. * SONAM Bilateral Screening Digital Mammogram With Adam (01/16/2025 5:07 PM EDT) Anatomical Region Laterality Modality Breast Bilateral Mammography Narrative 01/31/2025 11:25 AM EDT Marilyn Betancourt Exam Date: 01/16/25 [facility] [address] [place], [place] [address] EXAMINATION SONAM Bilateral Screening Digital Mammogram With Adam. INDICATION Marilyn Betancourt is a 59 y.o. female and is seen for: SONAM Bilateral Screening Digital Mammogram With Adam. CC and MLO views were obtained. FDA approved [employer] AI (artificial intelligence) software and R2 CAD were used as a concurrent reading aid in the interpretation of this study. COMPARISON Compared to: 01/15/2024 [facility] Bilateral Screening Digital Mammogram With Adam, 12/17/2022 [facility] Screening Digital Mammogram, 12/11/2021 SONAM Screening Digital Mammogram, 2020 [facility] Bilateral Screening Digital Mammogram, 06/27/2019 [facility] Bilateral Screening Digital Mammogram, and 12/06/2018 [facility] Unilateral Screening Digital Mammogram Bilateral Breast Findings: There are scattered areas of fibroglandular density. No significant masses, calcifications or other abnormalities are seen. IMPRESSION BI-RADS ATLAS category (overall): 1 - Negative MANAGEMENT Routine Screening Mammogram in 1 Year is recommended for bilateral. The patient was entered into a reminder system with a target date for their next mammogram. The patient s lifetime risk for breast cancer was calculated as: Tyrer-Cuzick: 6.16%. For high-risk women (life-time risk greater than 20%), regardless of breast density, supplemental screening with annual breast MRI is recommended in addition to annual mammography, ideally staggered at 6-month intervals. Women with dense breast tissue and lifetime risk less than 20% may also benefit from supplemental screening with breast MRI (Epic order M RI BREAST BILATERAL SCREENING W WO CONTRAST ) or automated breast ultrasound (Epic order A BUS ) depending on risk factors. https://acsearch.acr.org/docs/[email or web address]/Narrative/ TC score is not calculated for women with personal history of breast cancer or if age >80 years. If this radiology report contains a blank impression section, it is an incomplete radiology report. Please contact the interpreting radiologist or applicable radiology division as soon as possible to obtain the completed interpretation. Vanessa Quiroz MD Resulting Agency Comment [id number] us Dillon Roberto MD IMG BI PROCEDURES Final Resul t * Hemoglobin A1c (12/29/2024 8:48 AM EDT) Hemoglobin A1c 5.6 4.0 - 5.7 % 12/29/2024 9:43 AM EDT [facility] Estimated Average Glucose 114 mg/dL 12/29/2024 9:43 AM EDT [facility] Blood Structure of peripheral vein / Unknown Venipuncture / Unknown 12/29/2024 8:48 AM EDT 12/29/2024 8:59 AM EDT us Carmen Maloney NP LAB BLOOD ORDERABLES Final R esult [facility] [address] [place] [address], [place] [phone] * HM Colonoscopy (02/21/2019 12:05 PM EDT) us Onbase Scan [facility] Final Resu lt * Pap w/Reflex HPV (11/29/2007 6:00 PM EDT) Path Procedure TPGA (659100) 1 Edited by: [id number] [facility] ANATOMIC PATHOLOGY - BIOTECH THREE Specimen Labeled As: 1 CERV[address]/ENDOCERVI COURT CYTO MATERIAL - Edited by: [id number] [facility] ANATOMIC PATHOLOGY - BIOTECH THREE Diagnosis ThinPrep Pap Test Adequacy: Satisfactory for evaluation - no evidence of Transformation Zone sampling. Interpretation: Negative for Intraepithelial Lesion or Malignancy Remarks/Recommenda tions: This is the result of a morphological screening test with an inherent probability of a false negative interpretation. HPV testing in combination with a morphological Pap test reduces the probability of a serious cervical epithelial abnormality in patients over age 30 and is cost-effective. HPV testing can be useful in other clinical applications. See [place] Journal of Obstetrics and Gynecology 197(4):346-355, 2007. This Pap test was examined in accordance with the [facility] Cytopathology Laboratory written policy. This Pap test was examined by the ThinPrep Imaging System, [employer], [place], [place]. Edited by: [id number] - 0831 [facility] ANATOMIC PATHOLOGY - BIOTECH THREE Gynecologic Clinical Data Specimen source:, THINPREP (CERVICAL AND ENDOCERVICAL) [facility] ANATOMIC PATHOLOGY - BIOTECH THREE Gynecologic Clinical Data First date of LMP:, 11/17/07 [facility] ANATOMIC PATHOLOGY - BIOTECH THREE Gynecologic Clinical Data Hormonal Contraceptive:, Y [facility] ANATOMIC PATHOLOGY - BIOTECH THREE Marker 1 MM,MOUNIKA MILLIS [facility] ANATOMIC PATHOLOGY - BIOTECH THREE Marker 2 NILM,NILM [facility] ANATOMIC PATHOLOGY - BIOTECH THREE Cc Results To KYLE Palacios OBG [id number] [facility] [phone] [facility] ANATOMIC PATHOLOGY - BIOTECH THREE Signature REPORT SIGNED: MOUNIKA RAY 12/02/07 [facility] ANATOMIC PATHOLOGY - BIOTECH THREE Sign Out Audit MOUNIKA RAY [id number] FINAL [place] [id number] [facility] ANATOMIC PATHOLOGY - BIOTECH THREE Cytology / Unknown 8 6:00 PM EDT 11/29/2007 6:00 PM EDT us Lionel Agosto MD LAB HISTORICAL RESULTS Final Res ult [facility] ANATOMIC PATHOLOGY - BIOTECH THREE [address] [place] [id number], from Last 3 Months or Most Recently Relevant to Health Maintenance Insurance [employer] PPO Advance Directives Documents on File Type Date Recorded 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 Health Care Proxy 10/30/2021 Health Care Proxy 10/30/2021 Health Care Proxy 10/30/2021 Health Care Proxy 10/30/2021 Health Care Proxy 10/30/2021 Health Care Proxy 10/30/2021 Health Care Proxy 10/30/2021 Health Care Proxy 10/30/2021 Health Care Proxy 10/30/2021 Advance Directive 10/22/2021 5:24 PM Health Care Proxy 04/19/2020 5:58 AM * Full Code (Latest Code Status on File) Date Activated Date Inactivated Comments 01/03/2021 3:39 PM 01/04/2021 3:07 PM * Full Code Date Activated Date Inactivated Comments 01/03/2021 8:47 AM 01/03/2021 3:39 PM * Presumed Full Code Date Activated Date Inactivated Comments 04/19/2020 10:24 AM 04/20/2020 4:12 PM * Full Code Date Activated Date Inactivated Comments 04/19/2020 6:35 AM 04/19/2020 10:24 AM Healthcare Agents on File Name Relationship Healthcare Agent Relationship Communication Julian Betancourt Spouse Health Care Agent Care Teams Systems Integration Advisor Relationship Specialty Start Date End Date Dillon Roberto MD [address] [place] [id number] PCP - General Family Medicine 07/22/24
--- OUTSIDE RECORDS SUMMARY | 2025-05-19 11:02 | XMS_ITS | Encounter Summary ---
Author Organization [facility] Address [address] [place] [address] Care Team Providers Care Byproducts Maker Name Role Phone Reema Olivier MD Primary Care Provider Nadeem Michel MD Primary Care Provider Melva Pruitt APRN Primary Care Provider U navailable Unknown Pcp, Non [facility] Primary Care Provider Unava ilAndrew Cole MD Primary Care Provider Encounter Details Date Type Department Care Team (Late st Contact Info) Description 12/19/2008 Orders Only [facility] [address] [place] [phone] Reema Olivier MD [address] [place] [id number] Social History Tobacco Use Types Packs/Day Years [...] on filedocumented in this encounter Care Teams Byproducts Maker Relationship Specialty Start Date End Date Reema Olivier MD PCP - General 06/23/08 03/20/12 Nadeem Michel MD PCP - General Internal Medicine 03/21/12 03/29/13 Melva Rivero, [facility] PCP - General Internal Medicine 03/30/13 12/03/14 Unknown Pcp, Non [facility] PCP - General 12/04/14 03/19/15 Andrew Coffey MD [facility] [address] [place] [id number] PCP - General Internal Medicine 03/20/15 documented as of this encounter
--- OUTSIDE RECORDS SUMMARY | 2025-05-19 11:02 | XMS_ITS | Encounter Summary ---
Author Organization [facility] Address [address] [place] [address] Care Team Providers Care Technology Education Instructor Name Role Phone Reema Olivier MD Primary Care Provider Nadeem Michel MD Primary Care Provider Melva Pruitt APRN Primary Care Provider U navailable Unknown Pcp, Non [facility] Primary Care Provider Unava ilAndrew Cole MD Primary Care Provider Encounter Details Date Type Department Care Team (Late st Contact Info) Description 12/27/2008 Orders Only [address] [phone] Reema Oilvier MD [address] [place] [id number] Social History Tobacco Use Types Packs/Day Years [...] on filedocumented in this encounter Care Teams Technology Education Instructor Relationship Specialty Start Date End Date Reema Olivier MD PCP - General 06/23/08 03/20/12 Nadeem Michel MD PCP - General Internal Medicine 03/21/12 03/29/13 Melva Rivero, [facility] PCP - General Internal Medicine 03/30/13 12/03/14 Unknown Pcp, Non [facility] PCP - General 12/04/14 03/19/15 Andrew Coffey MD [facility] [address] [place] [id number] PCP - General Internal Medicine 03/20/15 documented as of this encounter
--- OUTSIDE RECORDS SUMMARY | 2025-05-19 11:02 | XMS_ITS | Encounter Summary ---
Author Organization [facility] Address [address] [place] [address] Care Team Providers Care Ship'S Cook Name Role Phone Melva Rivero APRN Primary Care Provider U navailable Unknown Pcp, Non Rmg Primary Care Provider Andrew Espino MD Primary Care Provider [phone] Encounter Details Date Type Department Care Team (Late st Contact Info) Description 10/26/2013 Orders Only [facility] [address] [place] [address] Melva Rivero, [facility] Social History Tobacco Use Types Packs/Day Years [...] encounter Progress Notes * Melva Rivero - 10/27/2013 12:48 PM ESTQuick Note: LS documented in this encounter Plan of Treatment Not on file documented as of this encounter Procedures * Due to [place] state law, this organization might not be sharing negative HIV tests. Procedure Name Priority Date/Time Associated Diagnosis Comments LIPID PANEL WITH REFLEX TO DIRECT LDL Routine 10/26/2013 7:17 AM EST Hyperlipidemia documented in this encounter Results * Due to [place] state law, this organization might not be sharing negative HIV tests. * (ABNORMAL) LIPID PANEL WITH REFLEX TO DIRECT LDL (10/26/2013 7:17 AM EST) Cholesterol 215(H) 125 - 200 mg/dL [facility] Comment:{CHOLESTEROL, TOTAL {[id number]) HDL Cholesterol 51 > OR = 46 mg/dL [facility] Comment:{HDL CHOLESTEROL {[id number]) Triglyceride 143 <150 mg/dL [facility] Comment:{TRIGLYCERIDES {[id number]) LDL Cholesterol 135(H) <130 mg/dL (calc) [facility] Comment: {LDL-CHOLESTEROL {[id number]) Desirable range <100 mg/dL for patients with CHD or diabetes and <70 mg/dL for diabetic patients with known heart disease. CHOL/HDL Ratio 4.2 < OR = 5.0 (calc) [facility] Comment:{CHOL/HDLC RATIO {[id number]) Cholesterol Non-HDL 164(H) mg/dL (calc) [facility] Comment: {NON HDL CHOLESTEROL {[id number]) Target for non-HDL cholesterol is 30 mg/dL higher than LDL cholesterol target. 10/26/2013 7:17 AM EST 10/26/2013 2:42 PM EST Narrative Resulting Agency Comment [id number] us Melva Rivero PULP[employer]OD CONTRACTOR BC LABORATORY Final Re sult [facility] [address] [place] [address] documented in this encounter Visit Diagnoses Diagnosis Hyperlipidemia- Primary Other and unspecified hyperlipidemia documented in this encounter Care Teams Ship'S Cook Relationship Specialty Start Date End Date Melva Rivero APRN BC PCP - General Internal Medicine 03/30/13 12/03/14 Unknown Pcp, Non Rmg PCP - General 12/04/14 03/19/15 Andrew Coffey MD [facility] [address] [facility] [place] [address] PCP - General Internal Medicine 03/20/15 documented as of this encounter
--- OUTSIDE RECORDS SUMMARY | 2025-05-19 11:02 | XMS_ITS | Clinical Summary ---
Author Organization [facility] Address [address] [facility] [place] [address] Care Team Providers Care Binman Name Role Phone Unavailable Primary Care Provider Unavailabl e Social History Tobacco Use Types Packs/Day Years Used Date Smoking Tobacco: Never Assessed Comments Unknown Sex and Gender Information Value Date Recorded Sex Assigned at Not on file Legal Sex Female 11:03 AM EST Gender Identity Not on file Sexual Orientation Not on file Plan of Treatment Health Maintenance Due Date Last Done Comments Colorectal Cancer: COLONOSCO PY Screening every 10 yrs (or Modifier) 1967 Depression: Screening Annual ly using PHQ-2/9 in Adults 18 yrs or above (or HM Modifier)([facility]) 1985 Hepatitis C Virus Infection in Adolescents and Adults: Screening (or Modifier) ([facility]) 1985 [facility] Screening Reminder: Temi urias for all adults ([facility]) 1985 Tobacco Smoking Cessation: i n Adults excluding Women: Behavioral and Pharmacotherapy Interventions ([facility]) 1985 DTaP/Tdap/Td Vaccines ([facility]) (1 - Tdap) 1986 Cervical Cancer Screenin 1-65 yrs of age (or Modifier) 1988 Cervical Cancer Screening: P ap every 3 yrs pts age 21-65 1988 Cervical Cancer: Pap Screeni ng with Modifier timing ([facility]) 1988 Cervical Cancer: hrHPV alone or with cotesting Pap for Pts 30-65yrs screening every 5yrs ([facility]) 1988 Colorectal Cancer Screening 45 -75 Yrs (or HM Modifier ) 2012 Colorectal Cancer: FLEXIBLE SIGMOIDOSCOPY Screening every 5 yrs 2012 Colorectal Cancer: Fecal Imm unochemical Test (FIT) Annually [facility] 2012 Colorectal Cancer: High-sens itivity gFOBT Screening Annually [facility] 2012 Colorectal Cancer: Stool Col oguard Screening every 3 yrs 2012 Colorectal Cancer:CT Colonography Screening every 5 yr s 2012 Breast Cancer: Screening Temi adonay age 50-74 yrs (or HM Modifier)([facility]) 2017 Pneumococcal Vaccination Scr eening: Patients 50+ yrs of age ([facility]) (1 of 1 - PCV) 2017 Zoster/Shingles Vaccine Seri es Screening: Adults aged 18+ yrs (or HM Modifiers)([facility]) (1 of 2) 2017 COVID-19 Vaccine Screening: Initial Series and Booster Status ([facility]) (2023- season) 2024 Flu Vaccination: Yearly for ages 18mos through 64 years (or Modifier)([facility]) 04/21/2025 Medical Devices Not on file Insurance * Guarantor: Marilyn Betancourt Account Type Relation to Patient Date of Phone Billing Address Personal/Family Self [address] [place] [address] [facility] [employer] * Guarantor: Marilyn Betancourt Account Type Relation to Patient Date of Phone Billing Address Personal/Family Self [address] [place] [address]
--- OUTSIDE RECORDS SUMMARY | 2025-05-19 11:02 | XMS_ITS | Encounter Summary ---
Author Organization [facility] Address [address] [place] [address] Care Team Providers Care Life Sciences Instructor Name Role Phone Dillon Roberto MD Primary Care Provider [phone] Encounter Details Date Type Department Care Team (Latest Contact Info) Description 06/05/2023 Transcribe Orders [facility] [address] [place] [address] [place], [place] [address] [place] [address] History of nasal surgery (Primary Dx) Social History Tobacco Use Types Packs/Day Years Used Date Smoking Tobacco: Former Cigarettes 1 20 0 04/19/2000 - 04/19/2019 Vapor Smokeless Tobacco: Former Quit: 02/17/2019 Comments:currently using vap or Alcohol Use Standard Drinks/Week Comments Yes 2 (1 standard drink = 0.6 oz pur e alcohol) Maybe 2 or 3 a month Comments No Sex and Gender Information Value Date Recorded Sex Assigned at Female 09/07/2020 7:56 AM EST Legal Sex Female 7:31 AM EDT Gender Identity Female 09/07/2020 7:56 AM EST Sexual Orientation Straight 09/07/2020 7: 56 AM EST documented as of this encounter Plan of Treatment Upcoming Encounters Date Type Department Care Team (Late st Contact Info) Description 06/09/2025 8:00 AM EDT Office Visit [address] CREMATORIUM OPERATOR Department [address] [place] [address] [address] [place] [phone] Michelle Soto MD [address] [place] [address] 01/18/2026 5:[address] [facility] [place] [place] [address] documented as of this encounter Visit Diagnoses Diagnosis History of nasal surgery- Primary documented in this encounter Care Teams Life Sciences Instructor Relationship Specialty Start Date End Date Dillon Roberto MD [address] [place] [address] PCP - General Family Medicine 07/22/24 documented as of this encounter
--- OUTSIDE RECORDS SUMMARY | 2025-05-19 11:02 | XMS_ITS | Clinical Summary ---
Author Organization [facility] Address [address] [place] [address] Care Team Providers Care Doctor Of Osteopathy Name Role Phone Andrew Coffey MD Primary Care Provider [phone] Allergies Active Allergy Reactions Criticality Noted Date Comments Varenicline Tartrate 04/29/2012 Worsening depression Penicillins Rash as a child, has taken Keflex with no problem Hydrocodone-Acetaminop hen Urticarial Rash Low 11/16/2008 Bupropion Hcl Side Effect (OK to Rx in future) 04/29/2012 Out of body Medications * This document contains information received from the source organization and may not represent a complete record from that organization. Naproxen 500 MG Tab 1 TABLET TWICE DAILY 60 Tab 2 07/26/2014 Active Active Problems Problem Noted Date Diagnosed Date Right shoulder pain 07/18/2014 Overview (07/24/2014): Tendonitis, tip acromion process. Prn ibuprofen, xray, ortho consult. Otitis externa 06/06/2014 Overview (07/24/2014): Interventions discussed 50/50 vinegar and warm water. If Persists, abx drops. 07/18/2014 Decorative tattoo 10/26/2013 Overview (12/05/2013): Check Hep B and C Obesity (BMI 30-39.9) 04/29/2012 Overview (12/05/2013): Advised diet, weight loss and exercise to decrease health risks. Healthcare maintenance 04/29/2012 Overview (10/19/2014): Pap-follows with ELECTRONEURODIAGNOSTIC TECHNICIAN Mammogram due in February [facility] Tobacco use disorder 04/29/2012 Overview (06/12/2014): Advised cessation, informed of complications CAD, COPD, [...] Reviewed interventions and cut down methods. Enc. Mood Disorder (F39) 04/29/2012 Overview (07/24/2014): 12/01 PHQ 9: 7, stable, denies suicidal/homicidal [...] improved on current dose 150 sertraline. Continue. Dyslipidemia 04/29/2012 Overview (06/12/2014): 06/02 Lipids acceptable S/e bruising with OTC Fish Oil 1 g tid Continue low cholesterol diet 10/26/2013 recheck labs. 06/06/2014 LDL 135. Follow. Menorrhagia with regular cycle 04/09/2012 Overview (06/16/2014): EMB done Path report.final diagnosis: Inactive/weakly proliferative pattern endometrium with focal tubal metaplasia and stromal breakdown. No hyperplasia or atypia is identified. (and pt started on progesterone only pill. Gets a monthly bleed of 5-7 days but not as heavy as when off medication. Doing well with POP. 06/16/14. Resolved Problems Problem Noted Date Diagnosed Date Resolved Date Abnormal mammogram 03/08/2014 5 Overview (10/19/2014): Add views needed.03/29/2014 6 mo fum mamm and us for fup. Due September 2014 [facility] 10/19/2014 back to annual due in February. Immunizations Immunization Administration Dates Next Due Influenza,injectable,quad,Prsrv Fr 10/26/2013 PPD/TST (Tuberculin Skin Test) 01/19/2004 PPV23 (Pneumovax) 04/29/2012 Td (adult), adsorbed 06/07/2003 Tdap 10/26/2013 Family History Medical History Relation Name Comments Alcohol/Drug Brother going into deto x Hypertension Daughter Rajani kidney stones Cancer (?Type) Father Leukemia, in remission for years Arthritis/Joint disorder Mother ost eo Hypertension Mother Diabetes Paternal grandmother Cancer - Breast Neg Hx Heart Disorder Neg Hx Relation Name Status Comments Brother Daughter Rajani Father Alive Mother Alive Paternal grandmother Social History Tobacco Use Types Packs/Day Years Used Date Smoking Tobacco: Every Day Cigarettes 1 7 Smokeless Tobacco: Never Tobacco Cessation:Counseling Given: No Alcohol Use Standard Drinks/Week Comments Yes 2.5 (1 standard drin k = 0.6 oz pure alcohol) Enjoys an occasional glass of wine Comments No Sex and Gender Information Value Date Recorded Sex Assigned at Not on file Legal Sex Female 4:29 AM EDT Gender Identity Not on file Sexual Orientation Not on file 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 Not on file Not on file Last Filed Vital Signs Vital Sign Reading Time Taken Comments Blood Pressure 116/72 01/21/2016 8:12 AM EDT Pulse 80 01/21/2016 8:12 AM EDT Temperature 36.8 C (98.2 F) 10/26/2013 3:53 PM EST Respiratory Rate 20 10/01/2009 12:57 PM EST Oxygen Saturation - - Inhaled Oxygen Concentration - - Weight 86.2 kg (190 lb) 01/21/2016 8:12 AM EDT Height 153.7 cm (5' 0.5 ) 01/21/2016 8:12 AM EDT Body Mass Index 36.5 01/21/2016 8:12 AM EDT Plan of Treatment Health Maintenance Due Date Last Done Comments Hep B (1 of 3 - 19+ 3-dose series) 1986 Pap Smear 04/09/2015 04/09/2012, 04/09/2012 Mammogram/Breast Imaging 10/12/2015 015, 03/21/2014, 02/20/2014, Additional history exists Pneumococcal 50+ years (2 of 2 - PCV) 2017 04/29/2012 Zoster (Shingrix) (1 of 2) 2017 DTaP/Tdap/Td (2 - Td or Tdap) 10/26/2023 10/26/2013, 06/07/2003 COVID-19 Vaccine ( season) 2024 Influenza (#1) 2025 10/26/2013 Hepatitis C Screening Completed 11/24/2013 HPV Vaccine (No Doses Required) Completed Hep A Aged Out No longer eligi ble based on patient's age to complete this topic Hib Aged Out No longer eligi ble based on patient's age to complete this topic Meningococcal ACWY Aged Out No longer eligible based on patient's age to complete this topic Goals Goal Patient Goal Type Associated Problems Recent Progress Patient-Stated? Author Quit smoking / using tobacco Lifestyle No Melva Olivas Procedures * Due to [place] state law, this organization might not be sharing negative HIV tests. Procedure Name Priority Date/Time Associated Diagnosis Comments DIGITAL UNILATERAL MAMMO DIAG Routine 10/12/2014 10:38 AM EST HEPATITIS C AB WITH REFLEX TO RNA PCR, SERUM Routine 11/24/2013 9:38 AM EST Decorative tattoo [facility] PAP AND HR HPV DNA Routine 04/09/2012 7:30 AM EDT from Last 3 Months or Most Recently Relevant to Health Maintenance Results * Due to [place] state law, this organization might not be sharing negative HIV tests. * DIGITAL UNILATERAL MAMMO DIAG (10/12/2014 10:38 AM EST) RADIOLOGY REPORT DEPARTMENT OF RADIOLOGY Patient: KENZIE BETANCOURT Unit #: [id number] Ordering MD: MELVA OLIVAS PBX TECHNICIAN : 1965 Procedure: Digital Unilateral Mammo Diag Age: 49 Location: W.MAMMO Exam Date: 10/12/14 Status: REG CLI Room/Bed: Primary MD: MELVA OLIVAS PBX TECHNICIAN Patient Order: [id number] Additional Copy: MELVA OLIVAS PBX TECHNICIAN #[id number] - DIGUNMAMDI #[id number] - USBRLIMIT UNILATERAL RIGHT DIGITAL DIAGNOSTIC MAMMOGRAM WITH CAD AND TARGETED RIGHT ULTRASOUND: 10/12/2014 CLINICAL: 6 Month F/U Rt Breast. Indication: Calcifications in the lower inner quadrant right breast. Comparison is made to exams dated: 03/21/2014 mammogram, 02/20/2014 mammogram, 02/15/2013 mammogram, 02/17/2012 mammogram - [facility], 01/15/2011 mammogram - [facility], and 12/19/2009 mammogram - [facility] [place]. There are scattered fibroglandular elements in the right breast. Current study was also evaluated with a Computer Aided Detection (CAD) system. There are grouped coarse benign appearing calcifications seen in the inferior inner right breast posterior third. There also are fine vascula calcifications intersecting in the lower inner breast mid/posterior third. Additionally there is a tubula benign appearing mass in the lower rigth breast middle third, stable since multiple prior mammograms dated back 2009, and likely reprsents a benign subcentimeter cyst or dilated duct at 4:00 6cm FN. No other abnormality seen in either breast, specifically no asymmetries were identified related to prior mammographic abnormalities from 03/21/2014. RIGHT BREAST ULTRASOUND: There are multiple subcentimer benign appearing cysts at 2-6 o'clock positon stable since prior ultrasound. These findings are benign and stable since prior study. Resume Annual screening mammogram is recommended to demonstrate stability. IMPRESSION: BENIGN, TARGETED ULTRASOUND BENIGN There is no mammographic or targeted sonographic evidence of malignancy. Return to annual mammogram screening schedule is recommended which will be due in February 2015. Based on the NCI/NSABP BCRA tool, this patient's calculated 5-year risk for developing breast cancer is 0.8% and lifetime risk is 8.4%. This exam was interpreted at [facility]. POI: [facility]. Electronically signed by: BREANA CHATMAN M.D. ls/:10/12/2014 14:21:43 letter sent: A-2 Normal Benign Mammogram BI-RADS: 2 Benign Ultrasound BI-RADS: 2 Benign [facility] RAD Anatomical Region Laterality Modality Other 10/12/2014 10:3 8 AM EST Narrative 10/13/2014 11:18 AM EST Reason for Study/History: 6 Month F/U Rt Breast. TEST(S) PROCESSED BY [facility] Melva Olivas APRN IMAGING-GOODHUE Final Result * HEPATITIS C ANTIBODY, SERUM (11/24/2013 9:38 AM EST) Pathologist [facility] Hepatitis C virus Ab NON-REACTI VE NON-REACT AMOL [email or web address] Comment:{HEPATITIS C ANTIBOD Y {[id number]) Hepatitis C virus Ab Signal/Cutoff 0.04 <1.00 [facility] Comment:{SIGNAL TO CUT-OFF { [id number]) 11/24/2013 9:38 AM EST 11/24/2013 7:53 PM EST Narrative Resulting Agency Comment [id number] Melva Olivas APRN LABORATORY Final Re sult [facility] [address] [place] [address] * [facility]??FPGS PAP AND HR??HPV DNA (04/09/2012 7:30 AM EDT) Clinical information Normal exam cigarette smoker [facility] Comment:{CLINICAL INFORMATIO N: {[id number]) [id number] [id number] [facility] Comment:{LMP: {[id number]) Date of previous PAP smear 1.5 YEARS AGO [facility] Comment:{PREV. PAP: {[id number]) Date of previous biopsy NONE GIVEN [facility] Comment:{PREV. BX: {[id number]) Specimen source (Cvx/Vag) Cervix, Endocervix [facility] Comment:{SOURCE: {[id number]) Statement of Adequacy (Cvx/Vag) Satisfactory for evaluation. Endocervical/miranda sformation zone component present. [facility] Comment:{STATEMENT OF ADEQUA CY: {[id number]) Cytology, Pap Smear Negative for intraepithelial lesion. [facility] Comment:{INTERPRETATION/RESU LT: {[id number]) Cytology study comment (Cvx/Vag) This Pap test has been evaluated with computer assisted technology. [facility] Comment:{COMMENT: {[id number]) Farebox Repairer (Cvx/Vag) WAC, CT(ASCP) [facility] Comment:{CRAYON GRADER: { [id number]) Farebox Repairer (Cvx/Vag) YANETH, CT(ASCP) [facility] Comment:{REVIEW CYTOTECHNOLO GIST: {[id number]) Human Papillomavirus (HPV) DNA, High Risk NOT DETECTED NOT DETECTED [facility] Comment: {HPV DNA (HIGH RISK) {[id number]) Tested for high risk types 16,18,31,33,35,39,45,51,52, 56,58,59,68. The analytical performance characteristics of this assay, when used to test Sure[facility] or vaginal specimens, have been determined by [employer]. Methodology: Hybrid Capture with Signal Amplification. 04/09/2012 7:30 AM EDT 04/09/2012 10:05 PM EDT us Daily [facility] Final Result [facility] [address] [place] [address] from Last 3 Months or Most Recently Relevant to Health Maintenance Care Teams Doctor Of Osteopathy Relationship Specialty Start Date End Date Andrew Coffey MD [facility] [address] [place] [address] PCP - General Internal Medicine 03/20/15
--- OUTSIDE RECORDS SUMMARY | 2025-05-19 11:02 | XMS_ITS | Encounter Summary ---
Author Organization [facility] Address [address] [place] [address] Care Team Providers Care Pvc Loader Name Role Phone Reema Olivier MD Primary Care Provider Nadeem Michel MD Primary Care Provider Melva Pruitt APRN Primary Care Provider U navailable Unknown Pcp, Non [facility] [place] Primary Care Provider Unava ilAndrew Cole MD Primary Care Provider Encounter Details Date Type Department Care Team (Late st Contact Info) Description 11/01/2008 Orders Only [facility] [address] [place] [phone] Reema Olivier MD [address] [place] [phone] Social History Tobacco Use Types Packs/Day Years [...] on file documented as of this encounter Results * Due to [place] state law, this organization might not be sharing negative HIV tests. * ALANINE AMINOTRANSFERASE (ALT), SERUM (12/25/2008) ALT (SGPT) 14 6 - 40 U/L 12/25/2008 12/25/2008 12: 17 PM EDT Result Abdiaziz Olivier MD LAB SAME DAY RESULT Final Result * ASPARTATE AMINOTRANSFERASE (AST), SERUM (12/25/2008) AST (SGOT) 12 10 - 30 U/L 12/25/2008 12/25/2008 12: 17 PM EDT Result Abdiaziz Olivier MD LAB SAME DAY RESULT Final [...] AVERAGE) 12/25/2008 12/25/2008 12: 17 PM EDT Result Abdiaziz Olivier MD LABORATORY Final Result documented in this encounter Visit Diagnoses Diagnosis Hyperlipidemia- Primary Other and unspecified hyperlipidemia documented in this encounter Care Teams Pvc Loader Relationship Specialty Start Date End Date Reema Olivier MD PCP - General 06/23/08 03/20/12 Nadeem Michel MD PCP - General Internal Medicine 03/21/12 03/29/13 Melva Rivero APRN PCP - General Internal Medicine 03/30/13 12/03/14 Unknown Pcp, Non Rmg PCP - General 12/04/14 03/19/15 Andrew Coffey MD [facility] [address] [place] [address] PCP - General Internal Medicine 03/20/15 documented as of this encounter
--- OUTSIDE RECORDS SUMMARY | 2025-05-19 11:02 | XMS_ITS | Encounter Summary ---
Author Organization [facility] Address [address] [place] [address] Care Team Providers Care Station Installer Name Role Phone Nadeem Michel MD Primary Care Provider Melva Pruitt APRN Primary Care Provider U navailable Unknown Pcp, Non g Primary Care Provider Unava ilAndrew Cole MD Primary Care Provider Encounter Details Date Type Department Care Team (Late st Contact Info) Description 06/17/2012 Orders Only [facility] CARE WORKER [address] [place] [phone] Taryn Lucio MD Social History Tobacco Use Types Packs/Day Years [...] as of this encounter Progress Notes * Donna Talbert - 06/21/2012 8:07 AM EDTQuick Note: Pt rx keflex at ov. Result to provider for review documented in this encounter Plan of Treatment Not on file documented as of this encounter Procedures * Due to [place] state law, this organization might not be sharing negative HIV tests. Procedure Name Priority Date/Time Associated Diagnosis Comments CULTURE,AEROBIC WOUND,SUPERFICIAL Routine 06/17/2012 3:55 PM EDT Bartholin's gland abscess documented in this encounter Results * Due to [place] [employer] law, this organization might not be sharing negative HIV tests. * (ABNORMAL) CULTURE, WOUND, SUPERFICIAL (06/17/2012 3:55 PM EDT) Bacteria culture SEE NOTE(A) [facility] Comment: {CULTURE, AEROBIC BACTERIA {[id number]) CULTURE, AEROBIC BACTERIA MICRO NUMBER: [id number] TEST STATUS: FINAL SPECIMEN SOURCE: ABSCESS SPECIMEN QUALITY: ADEQUATE RESULT: Heavy growth of Methicillin resistant Staphylococcus aureus (MRSA) Negative for inducible clindamycin resistance. COMMENT: Skin jose also present. MRSA INT AMBER AMOX/CLAVULANATE R NR AMP/SULBACTAM R NR CLINDAMYCIN S <0.25 ERYTHROMYCIN R >4 GENTAMICIN S <1 LEVOFLOXACIN S <0.5 OXACILLIN R NR 1 TETRACYCLINE S <1 TRIMETHOPRIM/SULFA S <0.5/9.5 VANCOMYCIN S 1 Legend: S = Susceptible I = Intermediate R = Resistant NS = Not Susceptible * = Not Tested NR = Not Reported nn = See Therapy Comments THERAPY COMMENTS Note 1: Oxacillin-resistant staphylococci are resistant to all currently available beta-lactam antimicrobial agents including penicillins, beta lactam/beta- lactamase inhibitor combinations, and cephems with staphylococcal indications, including Cefazolin. 06/17/2012 3:55 PM EDT 06/17/2012 9:40 PM EDT Narrative Resulting Agency Comment [id number] Taryn Lucio MD LABORATORY Final Resu lt [facility] [address] [place] [address] documented in this encounter Visit Diagnoses Diagnosis Bartholin's gland abscess Abscess of Bartholin's gland documented in this encounter Care Teams Station Installer Relationship Specialty Start Date End Date Nadeem Michel MD PCP - General Internal Medicine 03/21/12 03/29/13 Melva Rivero APRN PCP - General Internal Medicine 03/30/13 12/03/14 Unknown Pcp, Non Rmg PCP - General 12/04/14 03/19/15 Andrew Coffey MD [facility] [address] [place] [address] PCP - General Internal Medicine 03/20/15 documented as of this encounter
--- OUTSIDE RECORDS SUMMARY | 2025-05-19 11:02 | XMS_ITS | Encounter Summary ---
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 Copied/pasted from provider progress notes: Pap Follow up Plan: Repeat cytology in 3 years Normal/stable results letter with above recommendation mailed to pt. * Elizabeth Muro RN - 04/12/2012 8:30 AM EDTQuick Note: Some results still pending documented in this encounter Plan of Treatment Not on file documented as of this encounter Procedures * Due to [place] Shot Stats law, this organization might not be sharing negative HIV tests. Procedure Name Priority Date/Time Associated Diagnosis Comments HEMOGLOBIN AND HEMATOCRIT, BLOOD Routine 04/09/2012 9:01 AM EDT Menorrhagia with regular cycle THYROID STIMULATING HORMONE (TSH) WITH FREE T4 REFLEX, SERUM Routine 04/09/2012 9:01 AM EDT Menorrhagia with regular cycle [facility] PAP AND HR HPV DNA Routine 04/09/2012 7:30 AM EDT TISSUE PATHOLOGY Routine 04/09/2012 7:30 AM EDT documented in this encounter Results * Due to [place] Shot Stats law, this organization might not be sharing negative HIV tests. * THYROID STIMULATING HORMONE (TSH) WITH FREE T4 REFLEX, SERUM (04/09/2012 9:01 AM EDT) TSH 2.03 mIU/L [facility] Comment: {TSH W/REFLEX TO FT4 {[id number]) Reference Range > or = 20 Years 0.40-4.50 Ranges First trimester 0.26-2.66 Second trimester 0.55-2.73 Third trimester 0.43-2.91 04/09/2012 9:01 AM EDT 04/09/2012 5:03 PM EDT Narrative Resulting Agency Comment [id number] us Daily [facility] Final Resul t Performing Organization Address [facility] Co de Phone Number [facility] [address] [place] [address] * HEMOGLOBIN AND HEMATOCRIT, BLOOD (04/09/2012 9:01 AM EDT) Hemoglobin 12.5 11.7 - 15.5 g/dL [facility] Comment:{HEMOGLOBIN {[id number]) Hematocrit 37.4 35.0 - 45.0 % [facility] Comment:{HEMATOCRIT {[id number]) 04/09/2012 9:01 AM EDT 04/09/2012 5:03 PM EDT Narrative Resulting Agency Comment [id number] us Daily Eric [facility] SAME DAY RESULT Final R esult Performing Organization Address [facility] Co de Phone Number [facility] [address] [place] [address] * [facility]??[facility] PAP AND HR??HPV DNA (04/09/2012 7:30 AM EDT) Clinical information Normal exam cigarette smoker [facility] Comment:{CLINICAL INFORMATIO N: {[id number]) [id number] [id number] [facility] Comment:{LMP: {[id number]) Date of previous PAP smear 1.5 YEARS AGO [facility] Comment:{PREV. PAP: {[id number]) Date of previous biopsy NONE GIVEN [facility] Comment:{PREV. BX: {[id number]) Specimen source (Cvx/Vag) Cervix, Endocervix [facility] Comment:{SOURCE: {[id number]) Statement of Adequacy (Cvx/Vag) Satisfactory for evaluation. Endocervical/miranda sformation zone component present. [facility] Comment:{STATEMENT OF ADEQUA CY: {[id number]) Cytology, Pap Smear Negative for intraepithelial lesion. [facility] Comment:{INTERPRETATION/RESU LT: {[id number]) Cytology study comment (Cvx/Vag) This Pap test has been evaluated with computer assisted technology. [facility] Comment:{COMMENT: {[id number]) Telehealth Nurse (Cvx/Vag) [facility], [place](ASCP) [facility] Comment:{UNIVERSITY ADMINISTRATIVE ASSISTANT: { [id number]) Telehealth Nurse (Cvx/Vag) [facility], [place](ASCP) [facility] Comment:{REVIEW CYTOTECHNOLO GIST: {[id number]) Human Papillomavirus (HPV) DNA, High Risk NOT DETECTED NOT DETECTED [facility] Comment: {HPV DNA (HIGH RISK) {[id number]) Tested for high risk types 16,18,31,33,35,39,45,51,52, 56,58,59,68. The analytical performance characteristics of this assay, when used to test [facility] or vaginal specimens, have been determined by [facility]. Methodology: Hybrid Capture with Signal Amplification. 04/09/2012 7:30 AM EDT 04/09/2012 10:05 PM EDT Daily [facility] Final Result [facility] [address] [place] [address] * TISSUE PATHOLOGY REPORT (04/09/2012 7:30 AM EDT) Pathologist [facility] Clinical information Menorrhagia 2 passes - scant tissue [facility] Comment:{CLINICAL INFORMATIO N {[id number]) Pathologist Name Eugenia Suarez M.D. Direct , Board Certified in Anatomic and Clinical Pathology (electronic signature) [facility] Comment:{PATHOLOGIST {[id number]) Specimen source Endometrium (Biopsy) [facility] Comment:{A SOURCE {[id number]) Gross Observation SEE NOTE [facility] Comment: {A GROSS DESCRIPTION {[id number]) The name on the container is in agreement with the requisition. Specimen is received in formalin and consists of a soft mucoid maldonado-frank and dark brown aggregate of tissue fragments measuring in diameter 2.0 cm. Entirely submitted specimen in cassette A1. SC Gross exam(s) performed at: [facility] [address] [place] [address] Cnc Manager: KARLEE DAVIDSON MD FINAL DIAGNOSIS Inactive/weakly proliferative pattern endometrium with focal tubal metaplasia and stromal breakdown. No hyperplasia or atypia is identified. [facility] Comment:{A DIAGNOSIS {[id number]) 04/09/2012 7:30 AM EDT 04/09/2012 9:08 PM EDT us Daily [facility] Final Result [facility] [address] [place] [address] documented in this encounter Visit Diagnoses Diagnosis Menorrhagia with regular cycle Excessive or frequent menstruation documented in this encounter Care Teams Roll Plugger Relationship Specialty Start Date End Date Nadeem Michel MD PCP - General Internal Medicine 03/21/12 03/29/13 Melva Rivero APRN PCP - General Internal Medicine 03/30/13 12/03/14 Unknown Pcp, Non [facility] PCP - General 12/04/14 03/19/15 Andrew Coffey MD [facility] [address] [place] [id number] PCP - General Internal Medicine 03/20/15 documented as of this encounter
== END 2025-05-19 11:30 | disposition home or self-care (01) ==
LOC: HO.HNS 10:19
PROVIDERS: PCP Specialist/Technologist Athletic Trainer; Referring Provider Specialist/Technologist Athletic Trainer; Visit Provider Neurological Surgery
DX: M43.17 Spondylolisthesis, lumbosacral region (principal)
CPT/HCPCS: 99204

== ENCOUNTER 2025-05-19 10:19 | Outpatient (REF) | payer OTHER, SELFPAY ==
--- NOTE | ~2025-05-19 | XR_ITS ---
EXAMINATION: XR LUMBAR SPINE 4 OR MORE VIEWS HISTORY: M43.17 - Spondylolisthesis, lumbosacral region COMPARISON: There are no prior studies for comparison. FINDINGS: AP, and neutral, flexion, and extension lateral views of the lumbar spine are submitted. Osseous mineralization is normal. Five nonrib-bearing lumbar vertebral bodies are identified, maintaining normal height without evidence of fracture. There is slight leftward curvature which may be positional in nature. There is grade I spondylolisthesis of L5 on S1 measuring approximately 7 mm in the neutral, flexion, and extension positions. There is moderate degenerative disc disease with disc space narrowing, most prominent at the L4-5 level. 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 The visualized paraspinal soft tissues are unremarkable. XR/XR lumbar spine 4V min IMPRESSION: Degenerative disc disease as described. Grade I spondylolisthesis of L5 on S1 without significant change with flexion or extension. Electronically signed by: Mark Dillard MD 05/19/2025 11:37 AM EDT
== END 2025-05-19 10:20 | disposition home or self-care (01) ==
LOC: HO.HOSX 10:19
PROVIDERS: PCP Specialist/Technologist Athletic Trainer; Referring Provider Specialist/Technologist Athletic Trainer; Visit Provider Neurological Surgery
DX: M43.17 Spondylolisthesis, lumbosacral region (principal)
CPT/HCPCS: 72110

== ENCOUNTER → 2025-05-19 10:50 | Outpatient (BNV) | payer OTHER, SELFPAY | PROVIDERS: PCP Specialist/Technologist Athletic Trainer; Referring Provider Specialist/Technologist Athletic Trainer; Visit Provider Radiology Diagnostic Radiology | DX: M43.17 Spondylolisthesis, lumbosacral region (principal) | CPT/HCPCS: 72110 ==